=== PATIENT | female | born 1965 | race Caucasian/White ===

== ENCOUNTER 2023-12-19 06:40 | Outpatient (CLI) | payer OTHER, SELFPAY ==
[2023-12-19 08:12] LABS: Alanine Aminotransferase 28 U/L (6-35); Albumin Level 4.8 g/dL (3.5-5.1); Alkaline Phosphatase 72 U/L (38-126); Anion Gap 7 mmol/L (4-12); Aspartate Amino Transferase 36 U/L (14-36); Bilirubin,Total 0.5 mg/dL (0.2-1.3); Blood Urea Nitrogen 9 mg/dL (7-17); Calcium 9.4 mg/dL (8.4-10.2); Carbon Dioxide 32 mmol/L (22-30); Chloride 102 mmol/L (98-107); Cholesterol 195 mg/dL (0-200); Estimated Glomerular Filt Rate > 60; Glucose 83 mg/dL (65-110); HDL Direct 75 mg/dL; Potassium 4.3 mmol/L (3.4-5.0); Sodium 141 mmol/L (137-145); Triglycerides 178 mg/dL (<150)
[2023-12-19 08:20] LABS: Basophils Percent Auto 0.5 % (0.2-1.2); Eosinophils Absolute Auto 0.1 K/mm3 (0-0.3); Hematocrit 42.8 % (37.0-47.0); Immature Granulocyte Absolute 0.01 K/mm3 (0.00-0.031); Immature Granulocyte Percent A 0.3 % (0-0.5); Lymphocytes Absolute Auto 1.71 K/mm3 (0.9-3.2); Lymphocytes Percent Auto 43.2 % (18.3-44.2); Mean Corpuscular HGB Conc 32.7 g/dl (32-36); Mean Corpuscular Hemoglobin 28.7 pg (26-34); Mean Corpuscular Volume 87.9 fl (80-100); Mean Platelet Volume 10.1 fl (7.4-10.4); Monocytes Absolute Auto 0.3 K/mm3 (0.1-0.6); Monocytes Percent Auto 7.1 % (2.6-8.5); Neutrophils Absolute Auto 1.9 K/mm3 (1.3-6.7); Neutrophils Percent Auto 46.9 % (45.5-73.1); Platelet Count Result 218 k/mm3 (150-375); Red Blood Count 4.87 M/mm3 (4.2-5.4); Red Cell Distribution Width 13.1 % (11.5-14.5)
[2023-12-19 08:23] LABS: LDL Cholesterol Direct 74 mg/dL
[2023-12-19 09:17] LABS: Free T4 Free Thyroxine 1.29 ng/mL (0.78-2.19)
[2023-12-20 12:08] LABS: Triiodothyronine T3 Free 3.1 pg/mL (2.3-4.2)
== END 2023-12-19 06:41 | disposition home or self-care (01) ==
PROVIDERS: PCP Internal Medicine; Visit Provider Internal Medicine
DX: E03.9 Hypothyroidism, unspecified (principal); E78.00 Pure hypercholesterolemia, unspecified; Z79.899 Other long term (current) drug therapy
CPT/HCPCS: 36415; 80053; 80061; 84439; 84443; 84481; 85025

== ENCOUNTER 2024-06-29 07:07 | Outpatient (CLI) | payer OTHER, SELFPAY ==
--- OUTSIDE RECORDS SUMMARY | 2024-06-29 07:14 | XMS_ITS | Data Portability ---
Author Organization [facility] Address [address] [place] [address] Care Team Providers Care Government Affairs Specialist Name Role Phone NASEEM RAI Primary Care Provider Assessment Encounter Date Assessment Date Assessment LastModified by Organization Details LastModified Time 07/03/2023 07/03/2023 We will continue current therapy dyslipidemia atorvastatin Synthroid for her hypothyroidism montelukast for her rhinitis. Blood work reviewed increase her atorvastatin to 20 mg daily follow-up with me in 6 months obtain old records discussed coronary calcium scoring she wishes to pursue she says that she had a mammogram earlier this year also colonoscopy in 2021 or 2022 Not available 07/14/2023 12:51:53 01/09/2024 01/09/2024 we will continue current therapy she will follow up in 6 months blood work has been ordered and it was pending [email or web address] Not available 01/28/2024 23:14:47 Plan of Treatment Reminders Order Date Submit Date Provider Last Modified By Organization Details Last Modified Time Details Appointments ANY 15 2024 09:15A Wallace Rai MD Not available Not available Not available Lab None recorded. Referral None recorded. Procedures None recorded. Surgeries None recorded. Imaging CT, coronary calcium score 2023 024 [facility], [address] [facility], [facility] [address], [address], 01/24/2024 14:26:[address] 10 mg tablet 2023 024 [email or web address] [facility], [facility], [place], [address], 07/03/2023 15:28:34 atorvasta tin 20 mg tablet 2023 024 [email or web address] [facility], [address] [facility], [place], [address], 07/03/2023 15:28:34 Synthroid 88 mcg tablet 2023 024 [email or web address] [facility] ([facility]), [facility] [address], [place], [address], 07/03/2023 11:03:36 Patient TargetsNo targets recorded. Patient InstructionsNo instructions recorded. Reason for Referral None Reported. Results Created Date Observation Date Name Description Value Unit Range Abnormal Flag Note LastModifiedBy Organization Detail LastModifiedTime 06/13/19 24 06/13/2023 Thyro tropi n [Unit s/vol ume] in Serum or Plasm a thyroid-stim ulating hormone low thyro id-st imula ting hormo ne Not Available Not Available 05/05/2024 09:55:07 06/13/19 24 06/13/2023 25-hy droxy vitam in D3 [Mass /volu me] in Serum or Plasm a [id number] h Not Available Not Available 05/05/2024 09:55:07 06/13/19 24 06/13/2023 Triio dothy delio e (T3) Free [Mass /volu me] in Serum or Plasm a free T3 free T3 Not Available Not Available 05/05/2024 09:55:07 06/13/19 24 06/13/2023 Thyro xine (T4) free [Mass /volu me] in Serum or Plasm a free T4 free T4 Not Available Not Available 05/05/2024 09:55:07 06/13/19 24 06/13/2023 Lipid 1995 panel - Serum or Plasm a cholesterol high tushar stero l Not Available Not Available 05/05/2024 09:55:07 06/13/19 24 06/13/2023 Lipid 1995 panel - Serum or Plasm a triglyceride s high trigl yceri andra Not Available Not Available 05/05/2024 09:55:07 06/13/19 24 06/13/2023 Lipid 1996 panel - Serum or Plasm a HDL cholesterol HDL tushar stero l Not Available Not Available 05/05/2024 09:55:07 06/13/19 24 06/13/2023 Lipid 1996 panel - Serum or Plasm a cholesterol in LDL [mass/volume ] in serum or plasma LDL tushar stero l, calcu lated Not Available Not Available 05/05/2024 09:55:07 06/13/19 24 06/13/2023 Compr ehens ying metab olic 2000 panel - Serum or Plasm a sodium sodiu m Not Available Not Available 05/05/2024 09:55:07 06/13/19 24 06/13/2023 Compr ehens ying metab olic 2000 panel - Serum or Plasm a potassium potas sium Not Available Not Available 05/05/2024 09:55:07 06/13/19 24 06/13/2023 Compr ehens ying metab olic 2000 panel - Serum or Plasm a chloride chlor debbi Not Available Not Available 05/05/2024 09:55:07 06/13/19 24 06/13/2023 Compr ehens ying metab olic 2000 panel - Serum or Plasm a carbon dioxide high carbo n dioxi de Not Available Not Available 05/05/2024 09:55:07 06/13/19 24 06/13/2023 Compr ehens ying metab olic 2000 panel - Serum or Plasm a anion gap low anion gap Not Available Not Available 05/05/2024 09:55:07 06/13/19 24 06/13/2023 Compr ehens ying metab olic 2000 panel - Serum or Plasm a glucose gluco se Not Available Not Available 05/05/2024 09:55:07 06/13/19 24 06/13/2023 Compr ehens ying metab olic 2000 panel - Serum or Plasm a BUN BUN Not Available Not Availa ble 05/05/2024 09:55:07 06/13/19 24 06/13/2023 Compr ehens ying metab olic 2000 panel - Serum or Plasm a creatinine creat inine Not Available Not Available 05/05/2024 09:55:07 06/13/19 24 06/13/2023 Compr ehens ying metab olic 2000 panel - Serum or Plasm a GFR >60 GFR Not Available Not Availa ble 05/05/2024 09:55:07 06/13/19 24 06/13/2023 Compr ehens ying metab olic 2000 panel - Serum or Plasm a alkaline phosphatase alkal ine phosp hatas e Not Available Not Available 05/05/2024 09:55:07 06/13/19 24 06/13/2023 Compr ehens ying metab olic 2000 panel - Serum or Plasm a alanine aminotransfe rase jennifer ne amino trans feras e Not Available Not Available 05/05/2024 09:55:07 06/13/19 24 06/13/2023 Compr ehens ying metab olic 2000 panel - Serum or Plasm a aspartate aminotransfe rase aspar lim amino trans feras e Not Available Not Available 05/05/2024 09:55:07 06/13/19 24 06/13/2023 Compr ehens ying metab olic 2000 panel - Serum or Plasm a bilirubin, total bilir ubin, total Not Available Not Available 05/05/2024 09:55:07 06/13/19 24 06/13/2023 Compr ehens ying metab olic 2000 panel - Serum or Plasm a calcium calci um Not Available Not Available 05/05/2024 09:55:07 06/13/19 24 06/13/2023 Compr ehens ying metab olic 2000 panel - Serum or Plasm a total protein total prote in Not Available Not Available 05/05/2024 09:55:07 06/13/19 24 06/13/2023 Compr ehens ying metab olic 2000 panel - Serum or Plasm a albumin album in Not Available Not Available 05/05/2024 09:55:07 06/13/19 24 06/13/2023 Compr ehens ying metab olic 2000 panel - Serum or Plasm a globulin globu carol Not Available Not Available 05/05/2024 09:55:07 06/13/19 24 06/13/2023 Compr ehens ying metab olic 2000 panel - Serum or Plasm a A/G ratio A/G ratio Not Available Not Available 05/05/2024 09:55:07 06/13/19 24 06/13/2023 CBC W Auto Diffe renti al panel - Blood white blood cells low white blood cells Not Available Not Available 05/05/2024 09:55:07 03/21/20 24 06/13/2023 CBC W Auto Diffe renti al panel - Blood red blood cells red blood cells Not Available Not Available 05/05/2024 09:55:07 06/13/19 24 06/13/2023 CBC W Auto Diffe renti al panel - Blood hemoglobin hemog lobin Not Available Not Available 05/05/2024 09:55:07 06/13/19 24 06/13/2023 CBC W Auto Diffe renti al panel - Blood hematocrit hemat ocrit Not Available Not Available 05/05/2024 09:55:07 06/13/19 24 06/13/2023 CBC W Auto Diffe renti al panel - Blood mean red cell volume mean red cell volum e Not Available Not Available 05/05/2024 09:55:07 06/13/19 24 06/13/2023 CBC W Auto Diffe renti al panel - Blood mean red cell hemoglobin mean red cell hemog lobin Not Available Not Available 05/05/2024 09:55:07 06/13/19 24 06/13/2023 CBC W Auto Diffe renti al panel - Blood mean RBC HGB concentratio n mean RBC HGB dana ntrat ion Not Available Not Available 05/05/2024 09:55:07 06/13/19 24 06/13/2023 CBC W Auto Diffe renti al panel - Blood red cell distribution width red cell distr ibuti on width Not Available Not Available 05/05/2024 09:55:07 06/13/19 24 06/13/2023 CBC W Auto Diffe renti al panel - Blood platelets plate lets Not Available Not Available 05/05/2024 09:55:07 06/13/19 24 06/13/2023 CBC W Auto Diffe renti al panel - Blood mean platelet volume mean plate let volum e Not Available Not Available 05/05/2024 09:55:07 06/13/19 24 06/13/2023 CBC W Auto Diffe renti al panel - Blood neutrophils neutr ophil s Not Available Not Available 05/05/2024 09:55:07 06/13/19 24 06/13/2023 CBC W Auto Diffe renti al panel - Blood lymphocytes lymph ocyte s Not Available Not Available 05/05/2024 09:55:07 06/13/19 24 06/13/2023 CBC W Auto Diffe renti al panel - Blood monocytes monoc ytes Not Available Not Available 05/05/2024 09:55:07 06/13/19 24 06/13/2023 CBC W Auto Diffe renti al panel - Blood eosinophils eosin ophil s Not Available Not Available 05/05/2024 09:55:07 06/13/19 24 06/13/2023 CBC W Auto Diffe renti al panel - Blood basophils basop hils Not Available Not Available 05/05/2024 09:55:07 06/13/19 24 06/13/2023 CBC W Auto Diffe renti al panel - Blood immature granulocytes immat ure granu locyt es Not Available Not Available 05/05/2024 09:55:07 06/13/19 24 06/13/2023 CBC W Auto Diffe renti al panel - Blood neutrophils, absolute count neutr ophil s, absol [place] count Not Available Not Available 05/05/2024 09:55:07 06/13/19 24 06/13/2023 CBC W Auto Diffe renti al panel - Blood lymphocytes, absolute count lymph ocyte s, absol [place] count Not Available Not Available 05/05/2024 09:55:07 06/13/19 24 06/13/2023 CBC W Auto Diffe renti al panel - Blood monocytes, absolute count low monoc ytes, absol [place] count Not Available Not Available 05/05/2024 09:55:07 06/13/19 24 06/13/2023 CBC W Auto Diffe renti al panel - Blood eosinophils, absolute count eosin ophil s, absol [place] count Not Available Not Available 05/05/2024 09:55:07 06/13/19 24 06/13/2023 CBC W Auto Diffe renti al panel - Blood basophils, absolute count basop hils, absol [place] count Not Available Not Available 05/05/2024 09:55:07 06/13/19 24 06/13/2023 CBC W Auto Diffe renti al panel - Blood immature granulocytes ,absolute immat ure granu locyt es,ab solut e Not Available Not Available 05/05/2024 09:55:07 06/13/19 24 06/13/2023 CBC W Auto Diffe renti al panel - Blood nucleated red blood cells nucle ated red blood cells Not Available Not Available 05/05/2024 09:55:07 06/13/19 24 06/13/2023 CBC W Auto Diffe renti al panel - Blood NRBC# NRBC# Not Available Not Availa ble 05/05/2024 09:55:07 Result Notes None recorded. Problems Name Problem SNOMED Code Status Onset Date Resolution Date Notes Provider Name and Address Organization Details Recorded Time Hypercholestero lemia 40622158 Active 2023 DEL[place], [place] - [facility] 4 11:00:49 Hypothyroidism 16562780 Active 2023 DEL[place], [place] [facility] 4 11:00:55 Long-term drug therapy Active 2024 DEL[place], [place] - [facility] 5 10:40:55 Problem Notes None recorded. Medical Equipment None Reported. Allergies No known drug allergies Medications Name Sig Start Date Stop Date Status Note LastModified by Organization Details LastModified Time cyclobenzap rine 10 mg tablet TAKE 1 TABLET 3 TIMES A DAY BY ORAL ROUTE NEEDED. active Not Available Not Available No t Available atorvastati n 20 mg tablet TAKE 1 TABLET BY MOUTH EVERY DAY 2024 active Not Available Not Available Not Avai lable atorvastati n 10 mg tablet TAKE 1 TABLET BY MOUTH EVERY DAY 01/08 completed Not Available Not Available Not Available azithromyci n 250 mg tablet 07/02 completed Not Available Not Available Not Available hydrocodone 5 mg-acetamin ophen 325 mg tablet TAKE 1 TABLET BY MOUTH EVERY DAY NEEDED 07/02 completed Not Available Not Available Not Available alprazolam 0.5 mg tablet TAKE 1 TABLET BY MOUTH TWICE DAILY NEEDED 07/02 completed Not Available Not Available Not Available Synthroid 88 mcg tablet TAKE 1 TABLET EVERY DAY FOR HYPOTHYRO IDISM 2024 active Not Available Not Available Not Avai lable diclofenac sodium 75 mg tablet,tammie yed release TAKE 1 TABLET BY MOUTH TWICE DAILY 07/02 completed Not Available Not Available Not Available montelukast 10 mg tablet TAKE 1 TABLET BY MOUTH EVERY DAY active Not Available Not Available No t Available methylpredn isolone 4 mg tablets in a dose pack FOLLOW PACKAGE DIRECTION S 07/02 completed Not Available Not Available Not Available Vitals Date Recorded Body weight Heart rate Oxygen saturation Oxygen saturation in Arterial blood by Pulse oximetry Systolic blood pressure Diastolic blood pressure Provider Name and Address Organization Details Last Updated DateTime 4 47165.4 2 g 86 /min 98 % 98 % 120 mm[Hg] 82 mm[Hg] Yulia Montes De Oca MA [facility] 4 09:47:40 Date Recorded Body height Body mass index (BMI) Body weight Heart rate Oxygen saturation Oxygen saturation in Arterial blood by Pulse oximetry Systolic blood pressure Diastolic blood pressure Provider Name and Address Organization Details Last Updated DateTime 167.64 cm 21.9 kg/m2 90331.7 7 g 68 /min 98 % 98 % 110 mm[Hg] 78 mm[Hg] Ashley Shore MA [facility] 09:58:45 Social History Question Answer Notes LastModified by Organizat ion Details LastModified Time Tobacco Smoking Status Never Smoker [facility] 09:45:43 Do You Have An Advance Directive? No Information n ot available 01/09/2024 What Is Your Level Of Alcohol Consumption? Moderate Information not available 07/03/2023 Are You Blind Or Do You Have Difficulty Seeing? No Information n ot available 01/09/2024 What Is Your Level Of Caffeine Consumption? Moderate Information not available 07/03/2023 In The 14 Days Before Symptom Onset, Have You Had Close Contact With A Laboratory-confirm ed COVID-19 While That Case Was Ill? No Information n ot available 01/09/2024 In The 14 Days Before Symptom Onset, Have You Had Close Contact With A Person Who Is Under Investigation For COVID-19 While That Person Was Ill? No Information not available 01/09/2024 Have You Been To An Area Known To Be High Risk For COVID-19? No Information not available 01/09/2024 Are You Deaf Or Do You Have Serious Difficulty Hearing? No Information not available 01/09/2024 What Type Of Diet Are You Following? REGULAR Information n ot available 01/09/2024 Are There Any Guns Present In Your Home? No Information not available 01/09/2024 What Was The Date Of Your Most Recent Tobacco Screening? 01/09/2024 Information not available 01/09/2024 Do You Use Your Seat Belt Or Car Seat Routinely? Yes Information not available 01/09/2024 Do You Have Smoke And Carbon Monoxide Detectors In Your Home? Yes Information not available 01/09/2024 Do You Use Any Illicit Or Recreational Drugs? No Information not available 07/03/2023 Do You Use Sunscreen Routinely? Yes Information not available 01/09/2024 Has Tobacco Cessation Counseling Been Provided? No Information not available 07/03/2023 Do You Or Have You Ever Used Any Other Forms Of Tobacco Or Nicotine? No Information not available 07/03/2023 Sex: Female Functional Status Question Answer Note LastModified by Organization D etails LastModified Time Are you able to care for yourself? Yes Information n ot available 01/09/2024 Mental Status None recorded. Family History Nothing Reported. Medical History Condition Response High Cholesterol Y Thyroid Problems Y Gynecological HistoryNo gynecological history recorded. Obstetrics History GPAL:G 0 P 0 0 0 0 Immunizations Vaccine Type Date Status Note Provider Nam e and Address Organization Details Recorded Time COVID-19, mRNA, LNP-S, PF, 30 mcg/0.3 mL dose 1 completed [place], [place] - [facility] 01/08/2024 17:52:22 COVID-19, mRNA, LNP-S, PF, 30 mcg/0.3 mL dose 1 completed [place] [facility] 01/08/2024 17:52:22 Influenza, split virus, trivalent, preservative 4 completed [place] [facility] 01/08/2024 17:52:22 Influenza, split virus, trivalent, preservative 3 completed [place] [facility] 01/08/2024 17:52:22 Influenza, split virus, quadrivalent, PF 6 completed [place] [facility] 01/08/2024 17:52:22 Influenza, split virus, quadrivalent, PF 5 completed [place] [facility] 01/08/2024 17:52:22 Past Encounters Encounter ID Performer Location Encounter Start Date Encounter Closed Date Diagnosis/Indication Diagnosis SNOMED-CT Code Diagnosis ICD10 Code Diagnosis Note [id number] Naseem Rai MD [facility] (Adult Med) [address] [place] [address] 07/03/2023 09:30:08 07/03/2023 10:49:16 Hypercholesterolemia 90556433 E78.00 Hypothyroidism 03269449 E03.9 Rhinitis 75182438 J00 Screening for cardiovascular system disease 360248624 Z13.6 [id number] Naseem Rai MD [facility] [place] [address] [place] [address] 01/09/2024 09:48:09 01/09/2024 10:54:14 Hypercholesterolemia 94543084 E78.00 Hypothyroidism 34891603 E03.9 Health Concerns Section Related Observation LastModified by Organization Detai ls LastModified Time None Recorded Concern Status LastModified by Organization Details LastModified Time None Recorded Advance Directives Directive N: Payers Encounter Date Sequence Insurance Name Policy Number Policy Trujillo Covered Member ID Trujillo Member ID Guarantor Name 07/03/2023 1 [facility]: (PPO[facility] [id number] Odell Knapp [id number] Samanta Knapp 01/09/2024 1 [employer] [id number] Sherif Knapp [id number] Ivory Knapp Notes Date Note Type Note Provider Name and Address Organization Details Recorded Time 07/03/2023 text/html 58-year-old with hyperlipidemia chronic rhinitis hypothyroidism and has been seeing specialist for what they are considering possibly some chronic Lyme although has not been conclusive comes in she vacillates with fatigue and has for many years but right now she is not in a very fatigued state Naseem Rai MD Attn: [address] [place], [address], [facility] 07/14/2023 12:52:09 01/09/2024 text/html fatigue seems to be up and down atorvastatin she is taking that for her dyslipidemia still has not scheduled her calcium scoring Naseem Rai MD Attn: [address] [facility], [place], [address], [facility] 01/28/2024 23:15:07 OBGyn Episode No OBEpisode recorded.
--- OUTSIDE RECORDS SUMMARY | 2024-06-29 07:14 | XMS_ITS | Continuity of Care Document ---
Author Organization [facility] Address [address] [place] [address] Phone Care Team Providers Care Medical Library Assistant Name Role Phone Sunny Elaine MD Unavailable Unavailable Medications Medication Instructions Dosage Effective Dates (start - stop) Status Comments Ventolin HFA 90 mcg/actuation Aerosol Inhaler inhale 2 puff by inhalation route every 4 - 6 hours as needed - Active cetirizine 10 mg tablet take 1 tablet (10MG) by oral route every day 10 MG - Active Bepreve 1.5 % Eye Drops instill 1 drop by ophthalmic route 2 times every day into both eyes 1.00 drop - Active Please fill with 10 ml bottle fluticasone 50 mcg/actuation Nasal [place], Susp spray 2 spray (100MCG) by intranasal route every day in each nostril 100 MCG - Active Advance Directives Directive Yes / No Effective Date File Name No Information Encounters Encounter Description Practice Location Reason(s) For Visit Diagnoses Date Provider Providers Copied on Encounter [facility], [address], [place], [place], [id number] , [place] tel: [phone] [facility] Allergic rhinitis due to pollenOther Dyspnea/Respiratory AbnormalitiesChroni c rhinitis 2 Chele Correa. [address] [facility] [address], [place], [place], [id number] , [place]. tel: [phone] Referring Provider: Dylan Rai, [address] [facility] [address], [place], [address]. tel:[phone] Family History Family Member Type Diagnosis Age At Onset Mother Problem (finding) Allergies Payers Payer name Insurance type Covered constitution party ID Mikey rodriguez(s) BCBS PR OUT OF STATE [id number] Social History Type Description Quantity Date Captured Comments Alcohol Use Details Unknown Caffeine Use Details Unknown Tobacco Use Status No Information Smoking Status Never smoker Sex Female Vital Signs Date / Time: Height Weight BMI Pulse Rate Blood Pressure Temperature Respiratory Rate Body Surface Area Head Circumference Head Circ. Percentile Wt./Jonathan. Percentile BMI percentile Pulse Ox Inhaled Ox 9:55 AM 66.00 in 126.00 lbs 20.3 3 kg/m eter (2) 67 /min 111/81 mm[Hg] Chief Complaint And Reason For Visit No Information Reason For Referral Reason For Referral No Information History Of Present Illness Encounter Date Complaint History Of Prese nt Illness No Information Functional Status Date Functional Assessmen t No Information Instructions Date Instruction Additional Infor mation No Information Assessments Type Assessment Date No Information Patient Care Teams Name Effective Dates (start - stop) Status Members No Information
--- OUTSIDE RECORDS SUMMARY | 2024-06-29 07:14 | XMS_ITS | CONTINUITY OF CARE DOCUMENT ---
Author Name jessica lopez Address Unknown Organization [facility] Office Address [address] [place] [address] Phone [phone] Care Team Providers Care Soils Analyst Name Role Phone Mika Thomas DO Unavailable [phone] Jesus Rai DO Unavailable [phone] Jesus Rai DO Unavailable [phone] PROBLEMS Condition Status Date Provider Notes Cardiovascular screening active Esther Hurtado INSURANCE PROVIDERS Payer name Policy type / Coverage type Beena red alliance party ID SELF PAY TREATMENT PLAN Date Name CT, Coronary Calcium Score
--- OUTSIDE RECORDS SUMMARY | 2024-06-29 07:15 | XMS_ITS | Clinical Summary ---
Author Organization [facility] Address [address] [place] [address] Care Team Providers Care Director Private Music Therapy Agency Name Role Phone Unavailable Primary Care Provider Unavailabl e Social History Tobacco Use Types Packs/Day Years Used Date Smoking Tobacco: Never Assessed Comments Unknown Sex and Gender Information Value Date Recorded Sex Assigned at Not on file Legal Sex Female 8:34 PM CDT Gender Identity Not on file Sexual Orientation Not on file Plan of Treatment Health Maintenance Due Date Last Done Comments Cervical Cancer Screening Pa p Smear (Age 30 to 64) Every 3 Years 1965 Colorectal Cancer Screening Colonoscopy (10 Years) 1965 Annual Physical 1968 Hepatitis C 07/10/1983 DTaP, Tdap and Td Vaccines ( 1 - Tdap) 1984 Hepatitis B Vaccines (1 of 3 - 19+ 3-dose series) 1984 Cervical Cancer Screening Pa p with HPV Testing (Age 30 to 64) Every 5 Years 07/10/1995 Cervical Cancer Screening with HPV 07/10/1995 Mammogram Screening 2005 Zoster Vaccines (1 of 2) 07/10/2015 COVID-19 Vaccine (2023-2 5 season) 2023 Meningococcal B Vaccine Aged Out No l onger eligible based on patient's age to complete this topic Meningococcal Vaccine Aged Out No tamera maral eligible based on patient's age to complete this topic Pneumococcal Vaccine: Pediat rics (0 to 5 Years) and At-Risk Patients (6 to 64 Years) Aged Out No longer eligible b ased on patient's age to complete this topic RSV Immunizations Under 20 Months Aged Out No longer eligible based on patient's age to complete this topic
--- OUTSIDE RECORDS SUMMARY | 2024-06-29 07:15 | XMS_ITS | Data Portability ---
Author Organization [place] - [facility] [employer], Main Office Address [address] [place] [address] Care Team Providers Care Induction Coordination Engineer Name Role Phone NASEEM RAI Primary Care Provider NASEEM RAI Referring Provider [phone] Assessment Encounter Date Assessment Date Assessment LastModified by Organization Details LastModified Time 06/25/2022 06/25/2022 Continue current therapy and follow up in 6 months blood work prior [email or web address] Not available 06/25/2022 21:54:19 12/24/2022 12/24/2022 Few hydrocodone to have on hand when her headaches get really bad blood work diagnosis discussed follow-up 6 months [email or web address] Not available 12/25/2022 14:31:17 01/11/2023 01/11/2023 HPI: 57-year-old female who came in today for evaluation of her right-sided low back pain radiating into the buttocks. She had a fall in late March of this year where she fell directly onto her buttocks after slipping on some ice. She has severe pain in the right-sided low back. She was seen in the office with x-rays. No fracture was no. She had a very long time before this symptoms in the left-sided low back and sacral area improved. It was several months. She has had continued symptoms in her low back since that. At this point the pain is now in the right-sided low back and radiates deep into the buttocks. Pain worsens when she is up walking and standing. She states that she walks up the street to take the dog for a walk about time she comes back this area is bothering her quite a bit. She is not complaining of any radicular symptoms running down the legs. She does have a history of cramps in her feet that will come on spontaneously at times. She has had no episodes of numbness or tingling in the legs. Patient has tried shut-mus-opboxkh naproxen doing morning 2 at night and has done this consistently for about 6 weeks without any change in her symptoms. She has tried a home exercise program on her own and has done this on a regular basis for over 4 weeks again without any improvement of her symptoms. Overall she feels that the symptoms are getting worse and more frequent. Physical exam: 57-year-old female she is 5 ft 5 129 lb. Her right hip flexes to 135 without discomfort. Externally rotates to 50 internally rotates to 30 without discomfort. She has a negative straight leg raise and negative Stinchfield maneuver on the right leg. She has some mild tenderness to the right sacral area to palpation. There is no tenderness to the buttocks. She has normal sensation of both lower extremities. She has normal motor function all muscle groups right lower extremity. 2+ knee jerk and ankle jerk in the right leg. 2+ dorsalis pedis pulse. Impression: 57-year-old female who has right-sided low back pain that initially started with left-sided low back pain following a significant fall on to her buttocks in late March of this year. Her symptoms have continued to be very bothersome for her. She has tried [id number]-[id number] anti-inflammator ies as well as a home exercise program on her own. I have recommended starting with a Medrol Dosepak and follow that with Voltaren 75 mg b.i.d. will set up outpatient physical therapy to see if this will help. I am also going to try to get an MRI scan of her low back for thorough evaluation. She has had this pain for over 8 months and it seems to be worsening at this point I think it would be beneficial to get an MRI scan of her back to assess any other pathology that could be causing pain such as a herniated disc. We will set these measures up for her. I will reassess her in 1 month, if we are able to get the MRI scan done will see her back after that. 20 minutes was spent in treatment patient more half of this in [id number] conversation [email or web address] Not available 01/11/2023 16:06:43 Plan of Treatment Reminders Order Date Submit Date Provider Last Modified By Organization Details Last Modified Time Details Appointments None recorded. Lab lipid panel, serum 2022 023 [facility] (Lab), [address] [place], [address], 12:46:26 CMP, serum or plasma 2022 023 [facility] (Lab), [address] [place], [address], 12:46:43 CBC w/ auto diff 2022 023 [facility] (Lab), [address] [place], [address], 12:21:06 TSH, serum or plasma 2022 023 [facility] (Lab), [address] [place], [address], 13:03:57 T4, free, serum 2022 023 [facility] (Lab), [address] [place], [address], 12:48:54 T3, free, serum or plasma 2022 023 [facility] (Lab), [address] [place], [address], 12:49:01 Referral None recorded. Procedures None recorded. Surgeries None recorded. Imaging XR, lumbar spine 2022 023 [email or web address] [facility], [address], [place], [address], 16:07:25 Medication Orders Medrol (Kevin) 4 mg tablets in a dose pack [address] [id number], [address], [place], [id number], 3 15:53:58 diclofenac sodium 75 mg tablet,tammie yed release 2022 023 [email or web address] [id number], [address], [place], [id number], 3 15:53:58 Patient TargetsNo targets recorded. Patient InstructionsNo instructions recorded. Reason for Referral None Reported. Results Created Date Observation Date Name Description Value Unit Range Abnormal Flag Note LastModifiedBy Organization Detail LastModifiedTime 12/21/19 22 12/20/2021 SEDIM ENTAT ION RATE erythrocyte sedimentatio n rate 38 mm/HR 0-20 high Not Available [facility] (Lab) [address] [place], [address], 12/20/2021 14:13:48 12/21/19 22 12/20/2021 TSH thyroid-stim ulating hormone 1.140 uIU/m L 0.465- 4.680 Not Available [facility] (Lab) [address] [place], [address], 12/20/2021 13:16:26 12/21/19 22 12/20/2021 T3 FREE free T3 2.7 pg/mL 2.77-5 .27 low Not Available [facility] (Lab) [address] [place], [address], 12/20/2021 12:49:29 12/21/19 22 12/20/2021 T4 FREE free T4 1.73 NG/dL 0.78-2 .19 Not Available [facility] (Lab) [address] [place], [address], 12/20/2021 12:49:28 12/21/19 22 12/20/2021 LIPID PANEL LDL cholesterol, calculated 106 mg/dL 0-130 NIH IGNACIA NSUS REPOR T RECOM MENDA TIONS FOR LDL: ADULT CHILD LOW RISK <130 <110 (OPTI MAL LDL) <100 ----- BORDE RLINE : 130-1 59 ----- HIGH RISK: >160 >130 A TRIGL YCERI DE RESUL T >400 INVAL IDATE S THE CALCU LATIO N FOR LDL FRACT IONAT ION - THE LDL RESUL T WILL NOT BE REPOR EMORY. Not Available [facility] (Lab) [address] [place], [address], 12/20/2021 12:48:51 12/21/19 22 12/20/2021 LIPID PANEL cholesterol 196 mg/dL 140-19 9 NIH IGNACIA NSUS RECOM MENDA TION FOR JOI STERO L: ADULT CHILD LOW RISK: <200 <170 BORDE RLINE : <200- 239 ----- HIGH RISK: >240 >200 Not Available [facility] (Lab) [address] [place], [address], 12/20/2021 12:48:51 12/21/1912/20/2021 LIPID PANEL triglyceride s 177 mg/dL 0-150 high NIH IGNACIA NSUS REPOR T RECOM MENDA TION FOR TRIGL YCERI CLIFF: ADULT CHILD LOW RISK: <150 ----- BODER LINE: 150-1 99 ----- HIGH RISK: >200 ----- Not Available [facility] (Lab) [address] [place], [address], 12/20/2021 12:48:51 12/21/1912/20/2021 LIPID PANEL HDL cholesterol 55 mg/dL 40- Not Available [facility] (Lab) [address] [place], [address], 12/20/2021 12:48:51 12/21/1912/20/2021 COMPR EHENS THERESA METAB OLIC PANEL carbon dioxide 30 mmol/ L 22-30 Not Available [facility] (Lab) [address] [place], [address], 12/20/2021 12:48:49 12/21/19 22 12/20/2021 COMPR EHENS THERESA METAB OLIC PANEL sodium 139 mmol/ L 137-14 5 Not Available [facility] (Lab) [address] [place], [address], 12/20/2021 12:48:49 12/21/19 22 12/20/2021 COMPR EHENS THERESA METAB OLIC PANEL potassium 5.1 mmol/ L 3.5-5. 1 Not Available [facility] (Lab) [address] [place], [address], 12/20/2021 12:48:49 12/21/19 22 12/20/2021 COMPR EHENS THERESA METAB OLIC PANEL chloride 102 mmol/ L 98-107 Not Available [facility] (Lab) [address] [place], [address], 12/20/2021 12:48:49 12/21/19 22 12/20/2021 COMPR EHENS THERESA METAB OLIC PANEL anion gap 12.1 mmol/ L 14-22 low Not Available [facility] (Lab) [address] [place], [address], 12/20/2021 12:48:49 12/21/19 22 12/20/2021 COMPR EHENS THERESA METAB OLIC PANEL glucose 95 mg/dL 70-99 Not Available [facility] (Lab) [address] [place], [address], 12/20/2021 12:48:49 12/21/19 22 12/20/2021 COMPR EHENS THERESA METAB OLIC PANEL BUN 8 mg/dL 8-19 Not Available [facility] (Lab) [address] [place], [address], 12/20/2021 12:48:49 12/21/19 22 12/20/2021 COMPR EHENS THERESA METAB OLIC PANEL creatinine 0.82 mg/dL 0.66-1 .25 Not Available [facility] (Lab) [address] [place], [address], 12/20/2021 12:48:49 12/21/1912/20/2021 COMPR EHENS THERESA METAB OLIC PANEL GFR >60 Refer ence Range : Laurel ge GFR Healt hy Adult : >60 mL/mi n/1.7 3 m2 Chron ic Kidne y Disea se: 15-60 mL/mi n/1.7 3 m2 Kidne y Failu re: <15/m L/min /1.73 m2 www.n iddk. nih.g ov The MDRD study equat ion has not been valid ated in child sangeeta <18 years of age; pregn ant women ; the elder ly >85 years of age; or in some racia l or ethni c subgr oups, such as Hisri nics. Outsi de the valid ated chiqui eters , estim ated GFR is less accur ate, requi ring clini milton judgm ent on a case- by-ca se basis . Clini milton inter preta tion for other races and ages must be made by the clini logan. The MDRD study equat ion has not been valid ated for the evalu ation of serum creat inine relat ed to nutri aubrey l statu s or medic ation usage . For perso ns <18 years of age, a pedia tric GFR calcu lator is avail able on the [facility] websi te: https ://connie palacio.yo rg/pr shyamess ional s/kdo qi/gf r_cal culat or Not Available [facility] (Lab) [address] [place], [address], 12/20/2021 12:48:49 12/21/1912/20/2021 COMPR EHENS THERESA METAB OLIC PANEL alkaline phosphatase 74 U/L 38-126 Not Available [facility] (Lab) [address] [place], [address], 12/20/2021 12:48:49 12/21/1912/20/2021 COMPR EHENS THERESA METAB OLIC PANEL alanine aminotransfe rase 28 U/L 0-35 Not Available [facility] (Lab) [address] [place], [address], 12/20/2021 12:48:49 12/21/19 22 12/20/2021 COMPR EHENS THERESA METAB OLIC PANEL aspartate aminotransfe rase 35 U/L 15-37 Not Available [facility] (Lab) [address] [place], [address], 12/20/2021 12:48:49 12/21/19 22 12/20/2021 COMPR EHENS THERESA METAB OLIC PANEL bilirubin, total 0.30 mg/dL 0.20-1 .30 Not Available [facility] (Lab) [address] [place], [address], 12/20/2021 12:48:49 12/21/19 22 12/20/2021 COMPR EHENS THERESA METAB OLIC PANEL calcium 9.9 mg/dL 8.4-10 .2 Not Available [facility] (Lab) [address] [place], [address], 12/20/2021 12:48:49 12/21/19 22 12/20/2021 COMPR EHENS THERESA METAB OLIC PANEL total protein 7.2 g/dL 6.3-8. 2 Not Available [facility] (Lab) [address] [place], [address], 12/20/2021 12:48:49 12/21/19 22 12/20/2021 COMPR EHENS THERESA METAB OLIC PANEL albumin 4.6 g/dL 3.4-5. 0 Not Available [facility] (Lab) [address] [place], [address], 12/20/2021 12:48:49 12/21/19 22 12/20/2021 COMPR EHENS THERESA METAB OLIC PANEL globulin 2.6 g/dL 2.6-4. 2 Not Available [facility] (Lab) [address] [place], [address], 12/20/2021 12:48:49 12/21/1912/20/2021 COMPR EHENS THERESA METAB OLIC PANEL A/G ratio 1.8 ratio 1.0-2. 0 Not Available [facility] (Lab) [address] [place], [address], 12/20/2021 12:48:49 12/21/19 22 12/20/2021 VITAM IN D 25-HY DROXY [id number] 56.6 NG/mL 30-100 Vitam in D Statu s: Defic ient: <20 ng/mL Insuf ficie nt: 20-29 ng/mL Suffi cient : 30-10 0 ng/mL Not Available [facility] (Lab) [address] [place], [address], 12/20/2021 12:48:17 12/21/1912/20/2021 C REACT THERESA PROTE IN,UL TRA SENS C-reactive protein 0.36 mg/dL 0.0-0. 5 Not Available [facility] (Lab) [address] [place], [address], 12/20/2021 12:37:09 12/21/1912/20/2021 CBC/C OMPLE TE BLD COUNT W/DIF F hematocrit 40.7 % 35.7-4 5.7 Not Available [facility] (Lab) [address] [place], [address], 12/20/2021 12:33:59 12/21/1912/20/2021 CBC/C OMPLE TE BLD COUNT W/DIF F white blood cells 4.1 x10'3 /uL 4.2-10 .8 low Not Available [facility] (Lab) [address] [place], [address], 12/20/2021 12:33:59 12/21/19 22 12/20/2021 CBC/C OMPLE TE BLD COUNT W/DIF F red blood cells 4.60 x10'6 /uL 3.80-5 .20 Not Available [facility] (Lab) [address] [place], [address], 12/20/2021 12:33:59 12/21/19 22 12/20/2021 CBC/C OMPLE TE BLD COUNT W/DIF F hemoglobin 13.3 g/dL 12.0-1 5.6 Not Available [facility] (Lab) [address] [place], [address], 12/20/2021 12:33:59 12/21/19 22 12/20/2021 CBC/C OMPLE TE BLD COUNT W/DIF F mean red cell volume 88.5 fL 82.0-9 9.0 Not Available [facility] (Lab) [address] [place], [address], 12/20/2021 12:33:59 12/21/19 22 12/20/2021 CBC/C OMPLE TE BLD COUNT W/DIF F mean red cell hemoglobin 28.9 pg 27.0-3 3.0 Not Available [facility] (Lab) [address] [place], [address], 12/20/2021 12:33:59 12/21/19 22 12/20/2021 CBC/C OMPLE TE BLD COUNT W/DIF F mean RBC HGB concentratio n 32.7 g/dL 31.0-3 6.0 Not Available [facility] (Lab) [address] [place], [address], 12/20/2021 12:33:59 12/21/19 22 12/20/2021 CBC/C OMPLE TE BLD COUNT W/DIF F red cell distribution width 12.9 % 11.8-1 5.5 Not Available [facility] (Lab) [address] [place], [address], 12/20/2021 12:33:59 12/21/19 22 12/20/2021 CBC/C OMPLE TE BLD COUNT W/DIF F platelets 346 x10'3 /uL 150-40 0 Not Available [facility] (Lab) [address] [place], [address], 12/20/2021 12:33:59 12/21/19 22 12/20/2021 CBC/C OMPLE TE BLD COUNT W/DIF F mean platelet volume 9.5 fL 9.0-12 .4 Not Available [facility] (Lab) [address] [place], [address], 12/20/2021 12:33:59 12/21/19 22 12/20/2021 CBC/C OMPLE TE BLD COUNT W/DIF F neutrophils 46.7 % 39.0-7 2.0 Not Available [facility] (Lab) [address] [place], [address], 12/20/2021 12:33:59 12/21/19 22 12/20/2021 CBC/C OMPLE TE BLD COUNT W/DIF F lymphocytes 38.0 % 16.0-4 7.0 Not Available [facility] (Lab) [address] [place], [address], 12/20/2021 12:33:59 12/21/19 22 12/20/2021 CBC/C OMPLE TE BLD COUNT W/DIF F monocytes 9.0 % 5.0-12 .0 Not Available [facility] (Lab) [address] [place], [address], 12/20/2021 12:33:59 12/21/19 22 12/20/2021 CBC/C OMPLE TE BLD COUNT W/DIF F eosinophils 2.2 % 1.0-7. 0 Not Available [facility] (Lab) [address] [place], [address], 12/20/2021 12:33:59 12/21/19 22 12/20/2021 CBC/C OMPLE TE BLD COUNT W/DIF F basophils 0.7 % 0.0-2. 0 Not Available [facility] (Lab) [address] [place], [address], 12/20/2021 12:33:59 12/21/19 22 12/20/2021 CBC/C OMPLE TE BLD COUNT W/DIF F immature granulocytes 3.4 % 0.00-0 .50 high Not Available [facility] (Lab) [address] [place], [address], 12/20/2021 12:33:59 12/21/19 22 12/20/2021 CBC/C OMPLE TE BLD COUNT W/DIF F neutrophils, absolute count 1.93 x10'3 /uL 1.5-8. 0 Not Available [facility] (Lab) [address] [place], [address], 12/20/2021 12:33:59 12/21/19 22 12/20/2021 CBC/C OMPLE TE BLD COUNT W/DIF F lymphocytes, absolute count 1.57 x10'3 /uL 1.07-3 .43 Not Available [facility] (Lab) [address] [place], [address], 12/20/2021 12:33:59 12/21/19 22 12/20/2021 CBC/C OMPLE TE BLD COUNT W/DIF F monocytes, absolute count 0.37 x10'3 /uL 0.29-0 .99 Not Available [facility] (Lab) [address] [place], [address], 12/20/2021 12:33:59 12/21/19 22 12/20/2021 CBC/C OMPLE TE BLD COUNT W/DIF F nucleated red blood cells 0.0 % -0 Not Available [facility] (Lab) [address] [place], [address], 12/20/2021 12:33:59 12/21/19 22 12/20/2021 CBC/C OMPLE TE BLD COUNT W/DIF F eosinophils, absolute count 0.09 x10'3 /uL 0.02-0 .53 Not Available [facility] (Lab) [address] [place], [address], 12/20/2021 12:33:59 12/21/19 22 12/20/2021 CBC/C OMPLE TE BLD COUNT W/DIF F basophils, absolute count 0.03 x10'3 /uL 0.01-0 .08 Not Available [facility] (Lab) [address] [place], [address], 12/20/2021 12:33:59 12/21/19 22 12/20/2021 CBC/C OMPLE TE BLD COUNT W/DIF F immature granulocytes ,absolute 0.14 x10'3 /uL 0.00-0 .05 high Not Available [facility] (Lab) [address] [place], [address], 12/20/2021 12:33:59 12/21/19 22 12/20/2021 CBC/C OMPLE TE BLD COUNT W/DIF F NRBC# 0.00 x10'3 /uL Not Available [facility] (Lab) [address] [place], [address], 12/20/2021 12:33:59 04/24/19 23 04/24/2022 TSH thyroid-stim ulating hormone 0.992 uIU/m L 0.465- 4.680 Not Available [facility] (Lab) [address] [place], [address], 04/24/2022 11:29:35 04/24/19 23 04/24/2022 T4 FREE free T4 1.56 NG/dL 0.78-2 .19 Not Available [facility] (Lab) [address] [place], [address], 04/24/2022 11:21:56 04/24/1904/24/2022 T3 FREE free T3 3.1 pg/mL 2.77-5 .27 Not Available [facility] (Lab) [address] [place], [address], 04/24/2022 11:21:54 04/24/1904/24/2022 VITAM IN D 25-HY DROXY [id number] 58.3 NG/mL 30-100 Vitam in D Statu s: Defic ient: <20 ng/mL Insuf ficie nt: 20-29 ng/mL Suffi cient : 30-10 0 ng/mL Not Available [facility] (Lab) [address] [place], [address], 04/24/2022 11:21:42 04/24/1904/24/2022 LIPID PANEL cholesterol 223 mg/dL 140-19 9 high NIH IGNACIA NSUS RECOM MENDA TION FOR JOI STERO L: ADULT CHILD LOW RISK: <200 <170 BORDE RLINE : <200- 239 ----- HIGH RISK: >240 >200 Not Available [facility] (Lab) [address] [place], [address], 04/24/2022 11:11:04 04/24/19 23 04/24/2022 LIPID PANEL triglyceride s 159 mg/dL 0-150 high NIH IGNACIA NSUS REPOR T RECOM MENDA TION FOR TRIGL YCERI CLIFF: ADULT CHILD LOW RISK: <150 ----- BODER LINE: 150-1 99 ----- HIGH RISK: >200 ----- Not Available [facility] (Lab) [address] [place], [address], 04/24/2022 11:11:04 04/24/19 23 04/24/2022 LIPID PANEL HDL cholesterol 82 mg/dL 40- Not Available [facility] (Lab) [address] [place], [address], 04/24/2022 11:11:04 04/24/19 23 04/24/2022 LIPID PANEL LDL cholesterol, calculated 109 mg/dL 0-130 NIH IGNACIA NSUS REPOR T RECOM MENDA TIONS FOR LDL: ADULT CHILD LOW RISK <130 <110 (OPTI MAL LDL) <100 ----- BORDE RLINE : 130-1 59 ----- HIGH RISK: >160 >130 A TRIGL YCERI DE RESUL T >400 INVAL IDATE S THE CALCU LATIO N FOR LDL FRACT IONAT ION - THE LDL RESUL T WILL NOT BE REPOR EMORY. Not Available [facility] (Lab) [address] [place], [address], 04/24/2022 11:11:04 04/24/19 23 04/24/2022 COMPR EHENS THERESA METAB OLIC PANEL carbon dioxide 29 mmol/ L 22-30 Not Available [facility] (Lab) [address] [place], [address], 04/24/2022 11:10:55 04/24/19 23 04/24/2022 COMPR EHENS THERESA METAB OLIC PANEL sodium 141 mmol/ L 137-14 5 Not Available [facility] (Lab) [address] [place], [address], 04/24/2022 11:10:55 04/24/19 23 04/24/2022 COMPR EHENS THERESA METAB OLIC PANEL potassium 4.5 mmol/ L 3.5-5. 1 Not Available [facility] (Lab) [address] [place], [address], 04/24/2022 11:10:55 04/24/19 23 04/24/2022 COMPR EHENS THERESA METAB OLIC PANEL chloride 102 mmol/ L 98-107 Not Available [facility] (Lab) [address] [place], [address], 04/24/2022 11:10:55 04/24/19 23 04/24/2022 COMPR EHENS THERESA METAB OLIC PANEL anion gap 14.5 mmol/ L 14-22 Not Available [facility] (Lab) [address] [place], [address], 04/24/2022 11:10:55 04/24/19 23 04/24/2022 COMPR EHENS THERESA METAB OLIC PANEL glucose 92 mg/dL 70-99 Not Available [facility] (Lab) [address] [place], [address], 04/24/2022 11:10:55 04/24/19 23 04/24/2022 COMPR EHENS THERESA METAB OLIC PANEL BUN 8 mg/dL 8-19 Not Available [facility] (Lab) [address] [place], [address], 04/24/2022 11:10:55 04/24/19 23 04/24/2022 COMPR EHENS THERESA METAB OLIC PANEL creatinine 0.75 mg/dL 0.66-1 .25 Not Available [facility] (Lab) [address] [place], [address], 04/24/2022 11:10:55 04/24/19 23 04/24/2022 COMPR EHENS THERESA METAB OLIC PANEL GFR >60 Refer ence Range : Laurel ge GFR Healt hy Adult : >60 mL/mi n/1.7 3 m2 Chron ic Kidne y Disea se: 15-60 mL/mi n/1.7 3 m2 Kidne y Failu re: <15/m L/min /1.73 m2 www.n iddk. nih.g ov The MDRD study equat ion has not been valid ated in child sangeeta <18 years of age; pregn ant women ; the elder ly >85 years of age; or in some racia l or ethni c subgr oups, such as Hispa nics. Outsi de the valid ated chiqui eters , estim ated GFR is less accur ate, requi ring clini milton judgm ent on a case- by-ca se basis . Clini milton inter preta tion for other races and ages must be made by the clini logan. The MDRD study equat ion has not been valid ated for the evalu ation of serum creat inine relat ed to nutri aubrey l statu s or medic ation usage . For perso ns <18 years of age, a pedia tric GFR calcu lator is avail able on the [facility] websi te: https ://ww w.kid hakeem.o rg/pr ofess ional s/kdo qi/gf r_cal culat or Not Available [facility] (Lab) [address] [place], [address], 04/24/2022 11:10:55 04/24/19 23 04/24/2022 COMPR EHENS THERESA METAB OLIC PANEL alkaline phosphatase 71 U/L 38-126 Not Available [facility] (Lab) [address] [place], [address], 04/24/2022 11:10:55 04/24/19 23 04/24/2022 COMPR EHENS THERESA METAB OLIC PANEL alanine aminotransfe rase 23 U/L 0-35 Not Available [facility] (Lab) [address] [place], [address], 04/24/2022 11:10:55 04/24/19 23 04/24/2022 COMPR EHENS THERESA METAB OLIC PANEL aspartate aminotransfe rase 32 U/L 15-37 Not Available [facility] (Lab) [address] [place], [address], 04/24/2022 11:10:55 04/24/19 23 04/24/2022 COMPR EHENS THERESA METAB OLIC PANEL bilirubin, total 0.60 mg/dL 0.20-1 .30 Not Available [facility] (Lab) [address] [place], [address], 04/24/2022 11:10:55 04/24/19 23 04/24/2022 COMPR EHENS THERESA METAB OLIC PANEL calcium 9.6 mg/dL 8.4-10 .2 Not Available [facility] (Lab) [address] [place], [address], 04/24/2022 11:10:55 04/24/19 23 04/24/2022 COMPR EHENS THERESA METAB OLIC PANEL total protein 7.5 g/dL 6.3-8. 2 Not Available [facility] (Lab) [address] [facility] [place], [address], 04/24/2022 11:10:55 04/24/19 23 04/24/2022 COMPR EHENS THERESA METAB OLIC PANEL albumin 4.7 g/dL 3.4-5. 0 Not Available [facility] (Lab) [address] [place], [address], 04/24/2022 11:10:55 04/24/19 23 04/24/2022 COMPR EHENS THERESA METAB OLIC PANEL globulin 2.8 g/dL 2.6-4. 2 Not Available [facility] (Lab) [address] [place], [address], 04/24/2022 11:10:55 04/24/19 23 04/24/2022 COMPR EHENS THERESA METAB OLIC PANEL A/G ratio 1.7 ratio 1.0-2. 0 Not Available [facility] (Lab) [address] [place], [address], 04/24/2022 11:10:55 04/24/19 23 04/24/2022 CPK TOTAL creatine kinase 53 U/L 30-135 Not Available [facility] (Lab) [address] [place], [address], 04/24/2022 11:10:48 12/25/19 23 12/24/2022 CBC/C OMPLE TE BLD COUNT W/DIF F white blood cells 4.3 x10'3 /uL 4.2-10 .8 Not Available [facility] (Lab) [address] [place], [address], 12/24/2022 12:21:06 12/25/19 23 12/24/2022 CBC/C OMPLE TE BLD COUNT W/DIF F red blood cells 4.96 x10'6 /uL 3.80-5 .20 Not Available [facility] (Lab) [address] [place], [address], 12/24/2022 12:21:06 12/25/1912/24/2022 CBC/C OMPLE TE BLD COUNT W/DIF F hemoglobin 14.5 g/dL 12.0-1 5.6 Not Available [facility] (Lab) [address] [place], [address], 12/24/2022 12:21:06 12/25/1912/24/2022 CBC/C OMPLE TE BLD COUNT W/DIF F hematocrit 43.9 % 35.7-4 5.7 Not Available [facility] (Lab) [address] [place], [address], 12/24/2022 12:21:06 12/25/1912/24/2022 CBC/C OMPLE TE BLD COUNT W/DIF F mean red cell volume 88.5 fL 82.0-9 9.0 Not Available [facility] (Lab) [address] [place], [address], 12/24/2022 12:21:06 12/25/1912/24/2022 CBC/C OMPLE TE BLD COUNT W/DIF F mean red cell hemoglobin 29.2 pg 27.0-3 3.0 Not Available [facility] (Lab) [address] [place], [address], 12/24/2022 12:21:06 12/25/1912/24/2022 CBC/C OMPLE TE BLD COUNT W/DIF F mean RBC HGB concentratio n 33.0 g/dL 31.0-3 6.0 Not Available [facility] (Lab) [address] [place], [address], 12/24/2022 12:21:06 12/25/1912/24/2022 CBC/C OMPLE TE BLD COUNT W/DIF F red cell distribution width 13.1 % 11.8-1 5.5 Not Available [facility] (Lab) [address] [place], [address], 12/24/2022 12:21:06 12/25/1912/24/2022 CBC/C OMPLE TE BLD COUNT W/DIF F platelets 224 x10'3 /uL 150-40 0 Not Available [facility] (Lab) [address] [place], [address], 12/24/2022 12:21:06 12/25/1912/24/2022 CBC/C OMPLE TE BLD COUNT W/DIF F mean platelet volume 10.1 fL 9.0-12 .4 Not Available [facility] (Lab) [address] [place], [address], 12/24/2022 12:21:06 12/25/1912/24/2022 CBC/C OMPLE TE BLD COUNT W/DIF F neutrophils 62.0 % 39.0-7 2.0 Not Available [facility] (Lab) [address] [place], [address], 12/24/2022 12:21:06 12/25/1912/24/2022 CBC/C OMPLE TE BLD COUNT W/DIF F lymphocytes 30.2 % 16.0-4 7.0 Not Available [facility] (Lab) [address] [place], [address], 12/24/2022 12:21:06 12/25/1912/24/2022 CBC/C OMPLE TE BLD COUNT W/DIF F monocytes 6.0 % 5.0-12 .0 Not Available [facility] (Lab) [address] [place], [address], 12/24/2022 12:21:06 12/25/1912/24/2022 CBC/C OMPLE TE BLD COUNT W/DIF F eosinophils 1.4 % 1.0-7. 0 Not Available [facility] (Lab) [address] [place], [address], 12/24/2022 12:21:06 12/25/1912/24/2022 CBC/C OMPLE TE BLD COUNT W/DIF F basophils 0.2 % 0.0-2. 0 Not Available [facility] (Lab) [address] [place], [address], 12/24/2022 12:21:06 12/25/1912/24/2022 CBC/C OMPLE TE BLD COUNT W/DIF F immature granulocytes 0.2 % 0.00-0 .50 Not Available [facility] (Lab) [address] [place], [address], 12/24/2022 12:21:06 12/25/1912/24/2022 CBC/C OMPLE TE BLD COUNT W/DIF F neutrophils, absolute count 2.66 x10'3 /uL 1.5-8. 0 Not Available [facility] (Lab) [address] [place], [address], 12/24/2022 12:21:06 12/25/1912/24/2022 CBC/C OMPLE TE BLD COUNT W/DIF F lymphocytes, absolute count 1.30 x10'3 /uL 1.07-3 .43 Not Available [facility] (Lab) [address] [place], [address], 12/24/2022 12:21:06 12/25/19 23 12/24/2022 CBC/C OMPLE TE BLD COUNT W/DIF F monocytes, absolute count 0.26 x10'3 /uL 0.29-0 .99 low Not Available [facility] (Lab) [address] [place], [address], 12/24/2022 12:21:06 12/25/1912/24/2022 CBC/C OMPLE TE BLD COUNT W/DIF F eosinophils, absolute count 0.06 x10'3 /uL 0.02-0 .53 Not Available [facility] (Lab) [address] [place], [address], 12/24/2022 12:21:06 12/25/1912/24/2022 CBC/C OMPLE TE BLD COUNT W/DIF F basophils, absolute count 0.01 x10'3 /uL 0.01-0 .08 Not Available [facility] (Lab) [address] [place], [address], 12/24/2022 12:21:06 12/25/1912/24/2022 CBC/C OMPLE TE BLD COUNT W/DIF F immature granulocytes ,absolute 0.01 x10'3 /uL 0.00-0 .05 Not Available [facility] (Lab) [address] [place], [address], 12/24/2022 12:21:06 12/25/1912/24/2022 CBC/C OMPLE TE BLD COUNT W/DIF F nucleated red blood cells 0.0 % -0 Not Available [facility] (Lab) [address] [place], [address], 12/24/2022 12:21:06 12/25/19 23 12/24/2022 CBC/C OMPLE TE BLD COUNT W/DIF F NRBC# 0.00 x10'3 /uL Not Available [facility] (Lab) [address] [place], [address], 12/24/2022 12:21:06 12/25/1912/24/2022 LIPID PANEL cholesterol 290 mg/dL 140-19 9 high NIH IGNACIA NSUS RECOM MENDA TION FOR JOI STERO L: ADULT CHILD LOW RISK: <200 <170 BORDE RLINE : <200- 239 ----- HIGH RISK: >240 >200 Not Available [facility] (Lab) [address] [place], [address], 12/24/2022 12:46:26 12/25/1912/24/2022 LIPID PANEL triglyceride s 219 mg/dL 0-150 high NIH IGNACIA NSUS REPOR T RECOM MENDA TION FOR TRIGL YCERI CLIFF: ADULT CHILD LOW RISK: <150 ----- BODER LINE: 150-1 99 ----- HIGH RISK: >200 ----- Not Available [facility] (Lab) [address] [place], [address], 12/24/2022 12:46:26 12/25/1912/24/2022 LIPID PANEL HDL cholesterol 92 mg/dL 40- Not Available [facility] (Lab) [address] [place], [address], 12/24/2022 12:46:26 12/25/1912/24/2022 LIPID PANEL LDL cholesterol, calculated 154 mg/dL 0-130 high NIH IGNACIA NSUS REPOR T RECOM MENDA TIONS FOR LDL: ADULT CHILD LOW RISK <130 <110 (OPTI MAL LDL) <100 ----- BORDE RLINE : 130-1 59 ----- HIGH RISK: >160 >130 A TRIGL YCERI DE RESUL T >400 INVAL IDATE S THE CALCU LATIO N FOR LDL FRACT IONAT ION - THE LDL RESUL T WILL NOT BE REPOR EMORY. Not Available [facility] (Lab) [address] [place], [address], 12/24/2022 12:46:26 12/25/1912/24/2022 COMPR EHENS THERESA METAB OLIC PANEL sodium 140 mmol/ L 137-14 5 Not Available [facility] (Lab) [address] [place], [address], 12/24/2022 12:46:43 12/25/1912/24/2022 COMPR EHENS THERESA METAB OLIC PANEL potassium 4.1 mmol/ L 3.5-5. 1 Not Available [facility] (Lab) [address] [place], [address], 12/24/2022 12:46:43 12/25/1912/24/2022 COMPR EHENS THERESA METAB OLIC PANEL chloride 102 mmol/ L 98-107 Not Available [facility] (Lab) [address] [place], [address], 12/24/2022 12:46:43 12/25/1912/24/2022 COMPR EHENS THERESA METAB OLIC PANEL carbon dioxide 29 mmol/ L 22-30 Not Available [facility] (Lab) [address] [place], [address], 12/24/2022 12:46:43 12/25/1912/24/2022 COMPR EHENS THERESA METAB OLIC PANEL anion gap 13.1 mmol/ L 14-22 low Not Available [facility] (Lab) [address] [place], [address], 12/24/2022 12:46:43 12/25/1912/24/2022 COMPR EHENS THERESA METAB OLIC PANEL glucose 94 mg/dL 70-99 Not Available [facility] (Lab) [address] [place], [address], 12/24/2022 12:46:43 12/25/1912/24/2022 COMPR EHENS THERESA METAB OLIC PANEL BUN 10 mg/dL 8-19 Not Available [facility] (Lab) [address] [place], [address], 12/24/2022 12:46:43 12/25/1912/24/2022 COMPR EHENS THERESA METAB OLIC PANEL creatinine 0.70 mg/dL 0.66-1 .25 Not Available [facility] (Lab) [address] [place], [address], 12/24/2022 12:46:43 12/25/1912/24/2022 COMPR EHENS THERESA METAB OLIC PANEL GFR >60 Refer ence Range : Laurel ge GFR Healt hy Adult : >60 mL/mi n/1.7 3 m2 Chron ic Kidne y Disea se: 15-60 mL/mi n/1.7 3 m2 Kidne y Failu re: <15/m L/min /1.73 m2 www.n iddk. nih.g ov The MDRD study equat ion has not been valid ated in child sangeeta <18 years of age; pregn ant women ; the elder ly >85 years of age; or in some racia l or ethni c subgr oups, such as Hisri nics. Outsi de the valid ated chiqui eters , estim ated GFR is less accur ate, requi ring clini milton judgm ent on a case- by-ca se basis . Clini milton inter preta tion for other races and ages must be made by the clini logan. The MDRD study equat ion has not been valid ated for the evalu ation of serum creat inine relat ed to nutri aubrey l statu s or medic ation usage . For perso ns <18 years of age, a pedia tric GFR calcu lator is avail able on the NKF websi te: https :[email or web address] palacio.yo davila/pr charanjit colonal s/kdo qi/gf r_cal culat or Not Available [facility] (Lab) [address] [place], [address], 12/24/2022 12:46:43 12/25/1912/24/2022 COMPR EHENS THERESA METAB OLIC PANEL alkaline phosphatase 79 U/L 38-126 Not Available [facility] (Lab) [address] [place], [address], 12/24/2022 12:46:43 12/25/1912/24/2022 COMPR EHENS THERESA METAB OLIC PANEL alanine aminotransfe rase 24 U/L 0-35 Not Available [facility] (Lab) [address] [facility] [place], [address], 12/24/2022 12:46:43 12/25/1912/24/2022 COMPR EHENS THERESA METAB OLIC PANEL aspartate aminotransfe rase 30 U/L 15-37 Not Available [facility] (Lab) [address] [place], [address], 12/24/2022 12:46:43 12/25/1912/24/2022 COMPR EHENS THERESA METAB OLIC PANEL bilirubin, total 0.50 mg/dL 0.20-1 .30 Not Available [facility] (Lab) [address] [place], [address], 12/24/2022 12:46:43 12/25/1912/24/2022 COMPR EHENS THREESA METAB OLIC PANEL calcium 10.3 mg/dL 8.4-10 .2 high Not Available [facility] (Lab) [address] [place], [address], 12/24/2022 12:46:43 12/25/1912/24/2022 COMPR EHENS THERESA METAB OLIC PANEL total protein 8.2 g/dL 6.3-8. 2 Not Available [facility] (Lab) [address] [place], [address], 12/24/2022 12:46:43 12/25/19 23 12/24/2022 COMPR EHENS THERESA METAB OLIC PANEL albumin 5.2 g/dL 3.4-5. 0 high Not Available [facility] (Lab) [address] [place], [address], 12/24/2022 12:46:43 12/25/1912/24/2022 COMPR EHENS THERESA METAB OLIC PANEL globulin 3.0 g/dL 2.6-4. 2 Not Available [facility] (Lab) [address] [place], [address], 12/24/2022 12:46:43 12/25/1912/24/2022 COMPR EHENS THERESA METAB OLIC PANEL A/G ratio 1.7 ratio 1.0-2. 0 Not Available [facility] (Lab) [address] [place], [address], 12/24/2022 12:46:43 12/25/1912/24/2022 T4 FREE free T4 1.29 NG/dL 0.78-2 .19 Not Available [facility] (Lab) [address] [place], [address], 12/24/2022 12:48:54 12/25/1912/24/2022 T3 FREE free T3 3.5 pg/mL 2.77-5 .27 Not Available [facility] (Lab) [address] [place], [address], 12/24/2022 13:33:04 12/25/1912/24/2022 TSH thyroid-stim ulating hormone 0.517 uIU/m L 0.465- 4.680 Not Available [facility] (Lab) [address] [place], [address], 12/24/2022 13:03:57 06/13/19 24 06/13/2023 CBC/C OMPLE TE BLD COUNT W/DIF F white blood cells 3.9 x10'3 /uL 4.2-10 .8 low Not Available [facility] (Lab) [address] [place], [address], 06/13/2023 11:02:30 06/13/19 24 06/13/2023 CBC/C OMPLE TE BLD COUNT W/DIF F red blood cells 4.74 x10'6 /uL 3.80-5 .20 Not Available [facility] (Lab) [address] [place], [address], 06/13/2023 11:02:30 06/13/19 24 06/13/2023 CBC/C OMPLE TE BLD COUNT W/DIF F hemoglobin 14.0 g/dL 12.0-1 5.6 Not Available [facility] (Lab) [address] [place], [address], 06/13/2023 11:02:30 06/13/19 24 06/13/2023 CBC/C OMPLE TE BLD COUNT W/DIF F hematocrit 41.7 % 35.7-4 5.7 Not Available [facility] (Lab) [address] [place], [address], 06/13/2023 11:02:30 06/13/19 24 06/13/2023 CBC/C OMPLE TE BLD COUNT W/DIF F mean red cell volume 88.0 fL 82.0-9 9.0 Not Available [facility] (Lab) [address] [place], [address], 06/13/2023 11:02:30 06/13/19 24 06/13/2023 CBC/C OMPLE TE BLD COUNT W/DIF F mean red cell hemoglobin 29.5 pg 27.0-3 3.0 Not Available [facility] (Lab) [address] [place], [address], 06/13/2023 11:02:30 06/13/19 24 06/13/2023 CBC/C OMPLE TE BLD COUNT W/DIF F mean RBC HGB concentratio n 33.6 g/dL 31.0-3 6.0 Not Available [facility] (Lab) [address] [place], [address], 06/13/2023 11:02:30 06/13/19 24 06/13/2023 CBC/C OMPLE TE BLD COUNT W/DIF F red cell distribution width 12.7 % 11.8-1 5.5 Not Available [facility] (Lab) [address] [place], [address], 06/13/2023 11:02:30 06/13/19 24 06/13/2023 CBC/C OMPLE TE BLD COUNT W/DIF F platelets 229 x10'3 /uL 150-40 0 Not Available [facility] (Lab) [address] [place], [address], 06/13/2023 11:02:30 06/13/19 24 06/13/2023 CBC/C OMPLE TE BLD COUNT W/DIF F mean platelet volume 10.2 fL 9.0-12 .4 Not Available [facility] (Lab) [address] [place], [address], 06/13/2023 11:02:30 06/13/19 24 06/13/2023 CBC/C OMPLE TE BLD COUNT W/DIF F neutrophils 51.2 % 39.0-7 2.0 Not Available [facility] (Lab) [address] [place], [address], 06/13/2023 11:02:30 06/13/19 24 06/13/2023 CBC/C OMPLE TE BLD COUNT W/DIF F lymphocytes 40.1 % 16.0-4 7.0 Not Available [facility] (Lab) [address] [place], [address], 06/13/2023 11:02:30 06/13/19 24 06/13/2023 CBC/C OMPLE TE BLD COUNT W/DIF F monocytes 6.9 % 5.0-12 .0 Not Available [facility] (Lab) [address] [place], [address], 06/13/2023 11:02:30 06/13/19 24 06/13/2023 CBC/C OMPLE TE BLD COUNT W/DIF F eosinophils 1.0 % 1.0-7. 0 Not Available [facility] (Lab) [address] [place], [address], 06/13/2023 11:02:30 06/13/19 24 06/13/2023 CBC/C OMPLE TE BLD COUNT W/DIF F basophils 0.5 % 0.0-2. 0 Not Available [facility] (Lab) [address] [place], [address], 06/13/2023 11:02:30 06/13/19 24 06/13/2023 CBC/C OMPLE TE BLD COUNT W/DIF F immature granulocytes 0.3 % 0.00-0 .50 Not Available [facility] (Lab) [address] [place], [address], 06/13/2023 11:02:30 06/13/19 24 06/13/2023 CBC/C OMPLE TE BLD COUNT W/DIF F neutrophils, absolute count 1.99 x10'3 /uL 1.5-8. 0 Not Available [facility] (Lab) [address] [place], [address], 06/13/2023 11:02:30 06/13/19 24 06/13/2023 CBC/C OMPLE TE BLD COUNT W/DIF F lymphocytes, absolute count 1.56 x10'3 /uL 1.07-3 .43 Not Available [facility] (Lab) [address] [place], [address], 06/13/2023 11:02:30 06/13/19 24 06/13/2023 CBC/C OMPLE TE BLD COUNT W/DIF F monocytes, absolute count 0.27 x10'3 /uL 0.29-0 .99 low Not Available [facility] (Lab) [address] [place], [address], 06/13/2023 11:02:30 06/13/19 24 06/13/2023 CBC/C OMPLE TE BLD COUNT W/DIF F eosinophils, absolute count 0.04 x10'3 /uL 0.02-0 .53 Not Available [facility] (Lab) [address] [place], [address], 06/13/2023 11:02:30 06/13/19 24 06/13/2023 CBC/C OMPLE TE BLD COUNT W/DIF F basophils, absolute count 0.02 x10'3 /uL 0.01-0 .08 Not Available [facility] (Lab) [address] [place], [address], 06/13/2023 11:02:30 06/13/19 24 06/13/2023 CBC/C OMPLE TE BLD COUNT W/DIF F immature granulocytes ,absolute 0.01 x10'3 /uL 0.00-0 .05 Not Available [facility] (Lab) [address] [place], [address], 06/13/2023 11:02:30 06/13/19 24 06/13/2023 CBC/C OMPLE TE BLD COUNT W/DIF F nucleated red blood cells 0.0 % -0 Not Available [facility] (Lab) [address] [place], [address], 06/13/2023 11:02:30 06/13/19 24 06/13/2023 CBC/C OMPLE TE BLD COUNT W/DIF F NRBC# 0.00 x10'3 /uL Not Available [facility] (Lab) [address] [place], [address], 06/13/2023 11:02:30 03/21/20 24 06/13/2023 COMPR EHENS THERESA METAB OLIC PANEL sodium 141 mmol/ L 137-14 5 Not Available [facility] (Lab) [address] [place], [address], 06/13/2023 11:30:23 06/13/19 24 06/13/2023 COMPR EHENS THERESA METAB OLIC PANEL potassium 4.7 mmol/ L 3.5-5. 1 Not Available [facility] (Lab) [address] [place], [address], 06/13/2023 11:30:23 06/13/19 24 06/13/2023 COMPR EHENS THERESA METAB OLIC PANEL chloride 105 mmol/ L 98-107 Not Available [facility] (Lab) [address] [place], [address], 06/13/2023 11:30:23 06/13/19 24 06/13/2023 COMPR EHENS THERESA METAB OLIC PANEL carbon dioxide 32 mmol/ L 22-30 high Not Available [facility] (Lab) [address] [place], [address], 06/13/2023 11:30:23 06/13/19 24 06/13/2023 COMPR EHENS THERESA METAB OLIC PANEL anion gap 8.7 mmol/ L 14-22 low Not Available [facility] (Lab) [address] [place], [address], 06/13/2023 11:30:23 06/13/19 24 06/13/2023 COMPR EHENS THERESA METAB OLIC PANEL glucose 96 mg/dL 70-99 Not Available [facility] (Lab) [address] [place], [address], 06/13/2023 11:30:23 06/13/19 24 06/13/2023 COMPR EHENS THERESA METAB OLIC PANEL BUN 8 mg/dL 8-19 Not Available [facility] (Lab) [address] [place], [address], 06/13/2023 11:30:23 06/13/19 24 06/13/2023 COMPR EHENS THERESA METAB OLIC PANEL creatinine 0.83 mg/dL 0.66-1 .25 Not Available [facility] (Lab) [address] [place], [address], 06/13/2023 11:30:23 06/13/19 24 06/13/2023 COMPR EHENS THERESA METAB OLIC PANEL GFR >60 Refer ence Range : Laurel ge GFR Healt hy Adult : >60 mL/mi n/1.7 3 m2 Chron ic Kidne y Disea se: 15-60 mL/mi n/1.7 3 m2 Kidne y Failu re: <15/m L/min /1.73 m2 www.n iddk. nih.g ov The MDRD study equat ion has not been valid ated in child sangeeta <18 years of age; pregn ant women ; the elder ly >85 years of age; or in some racia l or ethni c subgr oups, such as Hisri nics. Outsi de the valid ated chiqui eters , estim ated GFR is less accur ate, requi ring clini milton judgm ent on a case- by-ca se basis . Clini milton inter preta tion for other races and ages must be made by the clini logan. The MDRD study equat ion has not been valid ated for the evalu ation of serum creat inine relat ed to nutri aubrey l statu s or medic ation usage . For perso ns <18 years of age, a pedia tric GFR calcu lator is avail able on the NKF websi te: https :[email or web address] palacio.yo davila/pr ofess ional s/kdo qi/gf r_cal culat or Not Available [facility] (Lab) [address] [place], [address], 06/13/2023 11:30:23 06/13/19 24 06/13/2023 COMPR EHENS THERESA METAB OLIC PANEL alkaline phosphatase 72 U/L 38-126 Not Available [facility] (Lab) [address] [place], [address], 06/13/2023 11:30:23 06/13/19 24 06/13/2023 COMPR EHENS THERESA METAB OLIC PANEL alanine aminotransfe rase 19 U/L 0-35 Not Available [facility] (Lab) [address] [place], [address], 06/13/2023 11:30:23 06/13/19 24 06/13/2023 COMPR EHENS THERESA METAB OLIC PANEL aspartate aminotransfe rase 31 U/L 15-37 Not Available [facility] (Lab) [address] [place], [address], 06/13/2023 11:30:23 06/13/19 24 06/13/2023 COMPR EHENS THERESA METAB OLIC PANEL bilirubin, total 0.60 mg/dL 0.20-1 .30 Not Available [facility] (Lab) [address] [place], [address], 06/13/2023 11:30:23 06/13/19 24 06/13/2023 COMPR EHENS THERESA METAB OLIC PANEL calcium 10.0 mg/dL 8.4-10 .2 Not Available [facility] (Lab) [address] [place], [address], 06/13/2023 11:30:23 06/13/19 24 06/13/2023 COMPR EHENS THERESA METAB OLIC PANEL total protein 7.6 g/dL 6.3-8. 2 Not Available [facility] (Lab) [address] [place], [address], 06/13/2023 11:30:23 06/13/19 24 06/13/2023 COMPR EHENS THERESA METAB OLIC PANEL albumin 5.0 g/dL 3.4-5. 0 Not Available [facility] (Lab) [address] [place], [address], 06/13/2023 11:30:23 06/13/19 24 06/13/2023 COMPR EHENS THERESA METAB OLIC PANEL globulin 2.6 g/dL 2.6-4. 2 Not Available [facility] (Lab) [address] [place], [address], 06/13/2023 11:30:23 06/13/19 24 06/13/2023 COMPR EHENS THERESA METAB OLIC PANEL A/G ratio 1.9 ratio 1.0-2. 0 Not Available [facility] (Lab) [address] [place], [address], 06/13/2023 11:30:23 06/13/19 24 06/13/2023 LIPID PANEL cholesterol 240 mg/dL 140-19 9 high NIH IGNACIA NSUS RECOM MENDA TION FOR JOI STERO L: ADULT CHILD LOW RISK: <200 <170 BORDE RLINE : <200- 239 ----- HIGH RISK: >240 >200 Not Available [facility] (Lab) [address] [place], [address], 06/13/2023 11:30:28 06/13/19 24 06/13/2023 LIPID PANEL triglyceride s 204 mg/dL 0-150 high NIH IGNACIA NSUS REPOR T RECOM MENDA TION FOR TRIGL YCERI CLIFF: ADULT CHILD LOW RISK: <150 ----- BODER LINE: 150-1 99 ----- HIGH RISK: >200 ----- Not Available [facility] (Lab) [address] [place], [address], 06/13/2023 11:30:28 06/13/19 24 06/13/2023 LIPID PANEL HDL cholesterol 88 mg/dL 40- Not Available [facility] (Lab) [address] [place], [address], 06/13/2023 11:30:28 06/13/19 24 06/13/2023 LIPID PANEL LDL cholesterol, calculated 111 mg/dL 0-130 NIH IGNACIA NSUS REPOR T RECOM MENDA TIONS FOR LDL: ADULT CHILD LOW RISK <130 <110 (OPTI MAL LDL) <100 ----- BORDE RLINE : 130-1 59 ----- HIGH RISK: >160 >130 A TRIGL YCERI DE RESUL T >400 INVAL IDATE S THE CALCU LATIO N FOR LDL FRACT IONAT ION - THE LDL RESUL T WILL NOT BE REPOR EMORY. Not Available [facility] (Lab) [address] [place], [address], 06/13/2023 11:30:28 06/13/19 24 06/13/2023 T4 FREE free T4 1.37 NG/dL 0.78-2 .19 Not Available [facility] (Lab) [address] [place], [address], 06/13/2023 11:32:18 06/13/19 24 06/13/2023 T3 FREE free T3 3.2 pg/mL 2.77-5 .27 Not Available [facility] (Lab) [address] [place], [address], 06/13/2023 11:32:22 06/13/19 24 06/13/2023 VITAM IN D 25-HY DROXY [id number] 57.4 NG/mL 30-100 Vitam in D Statu s: Defic ient: <20 ng/mL Insuf ficie nt: 20-29 ng/mL Suffi cient : 30-10 0 ng/mL Not Available [facility] (Lab) [address] [place], [address], 06/13/2023 11:44:55 06/13/19 24 06/13/2023 TSH thyroid-stim ulating hormone 0.404 uIU/m L 0.465- 4.680 low Not Available [facility] (Lab) [address] [place], [address], 06/13/2023 11:46:41 04/25/19 23 04/26/2022 XR, hip, unila teral , 2 or 3 view No observ ation record ed. [id number] [place] [address], [place], [address], 05/23/2022 01:31:46 01/12/20 XR, lumba r spine No observ ation record ed. [email or web address] [place] [address], [place], [address], 01/11/2023 16:01:34 01/29/2001/28/2023 MRI, lumba r spine , w/o contr ast [facility] [address] [address] Patien t Name: FABI FROST Access ion #: [id number] Sex: F : 1965 2 Dictat ed By: Quinten ocasio Attend ing Physic dereck: YAMILEX GOLDSMITH [facility] Physic dereck: YAMILEX GOLDSMITH Exam Date: 2022 08:41 AM Exam Name: MRI L SPINE WO Admitt ing Diagno sis(es ): CLINIC AL INFORM ATION: Low back pain. TECHNI MILTON INFORM ATION: Multis equenc e multip lanar MRI images of the lumbar spine were obtain ed withou t contra st. COMPAR SIVA: None. INTERP RETATI ON: Verteb ral body alignm ent is within normal limits . Verteb ral body height s are mainta ined. 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 No focal suspic ious marrow signal abnorm ality. Visual ized spinal cord and cauda equina are within normal limits . The conus medull gus is approp riate in signal at the L1 level. Parasp inal soft tissue s are unrema rkable . L1-L2: Disc desicc ation. No signif icant spinal canal or neural forami nal stenos is. L2-L3: Disc desicc ation. No signif icant spinal canal or neural forami nal stenos is. L3-L4: Disc desicc ation with mild disc space narrow ing. Mild disc bulge mildly flatte zee the ventra l aspect of the thecal sac. No signif icant spinal canal stenos is. Facet hypert rophy and mild encroa chment of the left neural forame n by a disc protru elisabeth contri bute to mild to modera te left neural forami nal stenos is. Mild right neural forami nal stenos is second lesia to facet hypert rophy. L4-L5: Disc desicc ation. Diffus e disc bulge mildly flatte zee the ventra l aspect of the thecal sac. No signif icant spinal canal stenos is. Small annula r fissur e. Facet hypert rophy with modera te bilate ral neural forami nal stenos es. L5-S1: Disc desicc ation. No signif icant spinal canal stenos is. Facet hypert rophy with mild to modera te bilate ral neural forami nal stenos es. Page 1 [facility] [address] [place] [address] [phone] Patien t Name: FABI FROST [facility] ion #: [id number] Sex: F : 1965 2 Dictat ed By: Quinten ocasio Attend [facility] Physic dereck: ANNETTA KAMINSKI [facility] Physic dereck: YAMILEX GOLDSMITH Exam Date: 2022 08:41 AM Exam Name: MRI L SPINE WO Admitt ing Diagno sis(es ): IMPRES ELISABETH: 1. Degene rative disc diseas e and facet diseas e in the lumbar spine with associ ated neural forami nal stenos es as descri bed above. No signif icant spinal canal stenos is. 2. Small annula r fissur e at L4-L5. Electr onical ly Signed by: Quinten ocasio at 2022 10:49: 58 AM Page 2 [facility] ([facility]) [address] [place], [address], 01/29/2023 12:41:57 Result Notes None recorded. Problems Name Problem SNOMED Code Status Onset Date Resolution Date Notes Provider Name and Address Organization Details Recorded Time Hypercholeste rolemia 94785224 Active Not Available [facility] 4 10:41:39 Liver enzymes outside reference range 307036683 Active Not Available [facility] 4 10:41:40 Menopausal flushing 772886884 Active Not Available [facility] 4 10:41:40 Lyme disease 18465594 Active 2019 Not Available [facility] 4 10:41:40 Headache 74478403 Active Not Available [facility] 4 10:41:40 Pure hypercholeste rolemia 383366586 Active Not Available [facility] 4 10:41:40 Numbness of face 452549525 Active Not Available [facility] 4 10:41:40 Multiple joint pain 08771554 Active Not Available [facility] 4 10:41:40 Neuropathy 216935594 Active Not Available [facility] 4 10:41:40 Hypothyroidis m 93788542 Active Not Available [facility] 4 10:41:40 History of polyp of colon 686744212 Active Not Available [facility] 4 10:41:40 Numbness 85735794 Active Not Available [facility] 4 10:41:40 Seasonal allergy 269022565 Active Not Available [facility] 4 10:41:40 Foot pain 86127410 Active 2021 Not Available [facility] 4 10:41:40 Anxiety 46575353 Active Not Available [facility] 4 10:41:40 Hand pain 65534822 Active Not Available [facility] 4 10:41:40 Increased liver function 66463593 Active Not Available [facility] 4 10:41:40 Fatigue 19128698 Active 2022 Not Available [facility] 4 10:41:40 Chronic rhinitis 25348151 Active Not Available [facility] 4 10:41:40 Low back pain 938616740 Active 2022 Not Available [facility] 4 10:41:40 Low back strain 764970038 Active 2022 Not Available [facility] 4 10:41:40 Acute sinusitis 77382812 Active 2022 Not Available [facility] 4 10:41:40 Problem Notes None recorded. Procedures Surgical History Date Name Laterality Status Provider Name and Address Organization Details Recorded Time 03/22/20 Most Recent Mammogram completed Not Available [facility] 05/23/2022 00:59:45 03/15/20 21 Date of Last Pap Smear completed Not Available [facility] 05/23/2022 00:59:44 10/18/19 21 Colonoscopy completed Not Available [facility] 05/24/19 00:59:49 05/06/19 21 Cataract Surgery completed Not Available [facility] 03/2022 00:59:49 04/01/19 21 Cataract Surgery completed Not Available [facility] 03/2022 00:59:49 07/03/19 19 Most Recent Bone Density completed Not Available [facility] 05/23/2022 00:59:45 08/11/19 16 Date of Last Colonoscopy completed Not Available [facility] 05/23/2022 00:59:45 10/25/19 10 [employer] Surgery completed Not Available [facility] 05/24/19 00:59:49 10/25/19 10 [employer] Surgery completed Not Available [facility] 05/24/19 00:59:49 05/22/19 07 endometrial biopsy completed Not Available [facility] 05/23/2022 00:59:49 [employer] Surgery completed Not Available [facility] 05/23/2022 00:59:49 Polyp Removal completed Not Available [facility] 05/23/2022 00:59:49 Colonoscopy completed Not Available [facility] 05/23/2022 00:59:49 Tonsillectomy completed Not Available [facility] 05/23/2022 00:59:49 Imaging Results Imaging Date Name Status LastModified by [facility] Details LastModified Time 04/26/2022 XR, hip, unilateral, 2 or 3 view completed [id number] [id number] [place] [address], [place], [address], 05/23/2022 01:31:46 01/11/2023 XR, lumbar spine completed [email or web address] [facility] [place] [address], [place], [address], 01/11/2023 16:01:34 01/28/2023 MRI, lumbar spine, w/o contrast completed [email or web address] [facility] (Imaging) [address] [place], [address], 01/29/2023 12:41:57 Procedure Notes None recorded. Medical Equipment None Reported. Allergies Allergen ID Allergen Name Allergen Category Reaction Reaction Severity Criticality Documentation Date Start Date Code Code System Note Provider Name and Address Organization Details Recorded Time 2590 nickel environme nt rash Not available Not available 05/23/2022 49956 29 RxNorm Not Available [facility] 01:31:04 Medications Name Sig Start Date Stop Date Status Note LastModified by Organization Details LastModified Time Prescriptio n - Prior Authorizati on Request active Not Available Not Available N ot Available cyclobenzap rine 10 mg tablet TAKE 1 TABLET BY MOUTH THREE TIMES DAILY NEEDED active Not Available Not Available No t Available fluconazole 100 mg tablet 03/15 completed Not Available Not Available Not Available ivermectin 3 mg tablet TAKE 4 TABLETS BY MOUTH AT 1 TIME ONCE A WEEK FOR NEUROBORR ELIOSIS 12/25 completed Not Available Not Available Not Available venlafaxine ER 37.5 mg capsule,ext ended release 24 hr 07/16 completed Not Available Not Available Not Available prednisone 10 mg tablet 01/14 completed Not Available Not Available Not Available venlafaxine ER 75 mg capsule,ext ended release 24 hr TAKE ONE CAPSULE BY MOUTH TWICE A DAY 03/07 completed Not Available Not Available Not Available doxycycline hyclate 100 mg capsule 09/19 completed Not Available Not Available Not Available cefuroxime axetil 250 mg tablet 09/20 completed Not Available Not Available Not Available cetirizine 10 mg tablet Take 1 tablet every day by oral route. 02/24 completed Not Available Not Available Not Available atorvastati n 10 mg tablet TAKE 1 TABLET BY MOUTH EVERY DAY active Not Available Not Available No t Available cefpodoxime 200 mg tablet TAKE 1 TABLET BY MOUTH TWICE A DAY 09/19 completed Not Available Not Available Not Available azithromyci n 250 mg tablet TAKE 2 TABLETS (500 MG) BY ORAL ROUTE ONCE DAILY FOR 1 DAY THEN 1 TABLET (250 MG) BY ORAL ROUTE ONCE DAILY FOR 4 DAYS 12/24 completed Not Available Not Available Not Available ofloxacin 0.3 % eye drops 09/19 completed Not Available Not Available Not Available benzonatate 200 mg capsule 07/17 completed Not Available Not Available Not Available hydrocodone 5 mg-acetamin ophen 325 mg tablet TAKE 1 TABLET BY MOUTH EVERY DAY NEEDED active Not Available Not Available No t Available minocycline 100 mg capsule TAKE 1 CAPSULE BY MOUTH TWICE A DAY (AVOID SUNBURN & TAKE WITH RIFAMPIN) active Not Available Not Available No t Available meloxicam 15 mg tablet TAKE 1 TABLET BY MOUTH EVERY DAY 12/24 completed Not Available Not Available Not Available Synthroid 125 mcg tablet Take 1 tablet every day by oral route in the morning for 30 days. 05/31 completed Not Available Not Available Not Available prednisone 20 mg tablet 09/20 completed Not Available Not Available Not Available Synthroid 100 mcg tablet Take 1 tablet every day by oral route in the morning for 30 days. 05/26 completed Not Available Not Available Not Available propranolol ER 60 mg capsule,24 hr,extended release 03/04 completed Not Available Not Available Not Available metronidazo le 250 mg tablet PLEASE SEE ATTACHED FOR DETAILED DIRECTION S 05/26 completed Not Available Not Available Not Available clindamycin HCl 150 mg capsule TAKE ONE CAPSULE BY MOUTH EVERY 5 HOURS WHILE AWAKE 09/19 completed Not Available Not Available Not Available nystatin 500,000 unit tablet TAKE 4 TABLETS BY MOUTH EVERY DAY FOR INTESTINA L YEAST active Not Available Not Available No t Available penicillin V potassium 500 mg tablet 01/14 completed Not Available Not Available Not Available lamotrigine 25 mg tablet 03/07 completed Not Available Not Available Not Available ketorolac 0.5 % eye drops active Not Available Not Available Not Available tetracyclin e 250 mg capsule TAKE 3 CAPSULE BY MOUTH TWICE DAILY. TAKE 20 MINUTES PRIOR TO EATING OR 1 HOUR AFTER EATING 12/25 completed Not Available Not Available Not Available Kenalog 40 mg/mL suspension for injection Take 1 mL by injection route. active [id number] Not Available Not Available Not Available Celebrex 200 mg capsule Take 1 capsule every day by oral route. 09/20 completed Not Available Not Available Not Available terbinafine HCl 250 mg tablet TAKE 1 TABLET BY MOUTH EVERY DAY 07/16 completed Not Available Not Available Not Available alprazolam 0.25 mg tablet Take 1 tablet 3 times a day by oral route. active Not Available Not Available No t Available prednisolon e acetate 1 % eye drops,suspe nsion active Not Available Not Available Not Available Zoloft 50 mg tablet Take 1 tablet every day by oral route. 01/17 completed Not Available Not Available Not Available rifampin 150 mg capsule TAKE 1 2 CAPSULES BY MOUTH TWICE DAILY. TAKE WITH MINOCYCLI NE. active Not Available Not Available No t Available amitriptyli ne 10 mg tablet 09/20 completed Not Available Not Available Not Available sulfacetami de sodium 10 % eye drops 09/19 completed Not Available Not Available Not Available simvastatin 20 mg tablet Take 1 tablet every day by oral route. 01/08 completed Not Available Not Available Not Available erythromyci n 5 mg/gram (0.5 %) eye ointment APPLY TO AFFECTED EYE(S) EVERY 4 HOURS NEEDED active Not Available Not Available No t Available Synthroid 88 mcg tablet TAKE 1 TABLET DAILY 2022 active Not Available Not Available Not Avai lable polymyxin B sulfate 10,000 unit-trimet hoprim 1 mg/mL eye drops active Not Available Not Available Not Available Synthroid 75 mcg tablet Take 1 tablet every day by oral route in the morning for 90 days. 05/26 completed Not Available Not Available Not Available diclofenac sodium 75 mg tablet,tammie yed release TAKE 1 TABLET BY MOUTH TWICE DAILY active Not Available Not Available No t Available montelukast 10 mg tablet TAKE 1 TABLET BY MOUTH DAILY active Not Available Not Available No t Available azelastine 137 mcg (0.1 %) nasal spray Cranberry Isles 2 sprays twice a day by intranasa l route. 03/09 completed Not Available Not Available Not Available hydroxychlo roquine 200 mg tablet TAKE 1 TABLET BY MOUTH TWICE A DAY 09/19 completed Not Available Not Available Not Available cefuroxime axetil 500 mg tablet 09/19 completed Not Available Not Available Not Available estradiol 0.01% (0.1 mg/gram) vaginal cream Insert by vaginal route. 03/09 completed Not Available Not Available Not Available methylpredn isolone 4 mg tablets in a dose pack FOLLOW PACKAGE DIRECTION S active Not Available Not Available No t Available fluticasone propionate 50 mcg/actuati on nasal spray,suspe nsion 2 sprays each nostril daily. 03/07 completed Not Available Not Available Not Available fludrocorti sone 0.1 mg tablet TAKE 1 TABLET BY MOUTH DAILY. (NEVER STOP THIS MEDICATIO N SUDDENLY. ALWAYS TAPER OFF OF IT. active Not Available Not Available No t Available doxycycline hyclate 100 mg tablet 09/20 completed Not Available Not Available Not Available atovaquone 750 mg/5 mL oral suspension TAKE 5ML BY MOUTH TWICE DAILY. TAKE WITH FOOD OR AT LEAST 10 GRAMS OF FAT. 03/15 completed Not Available Not Available Not Available amoxicillin 875 mg-potassiu m clavulanate 125 mg tablet 07/15 completed Not Available Not Available Not Available Ventolin HFA 90 mcg/actuati on aerosol inhaler Inhale 2 puffs every 4 hours by inhalatio n route. 07/17 completed Not Available Not Available Not Available oxycodone 5 mg tablet TAKE 1 TABLET BY MOUTH EVERY 4 HOURS NEEDED FOR PAIN 06/25 completed Not Available Not Available Not Available testosteron e propionate 2 % transdermal cream compounding kit Apply by transderm al route. 03/09 completed Not Available Not Available Not Available cholestyram ine (with sugar) 4 gram oral powder MIX 1 SCOOP OF POWDER WITH LIQUID AND DRINK ONCE DAILY AT 2PM 08/25 completed Not Available Not Available Not Available escitalopra m 5 mg tablet TAKE 1 TABLET BY MOUTH EVERY DAY. 07/17 completed Not Available Not Available Not Available quinine 324 mg capsule TAKE 1 CAPSULE BY MOUTH ONCE DAILY 09/19 completed Not Available Not Available Not Available Co Q-10 200 mg capsule Take by oral route. 04/25 completed Not Available Not Available Not Available venlafaxine 12/13 completed Not Available Not Available Not Available famotidine 20 mg tabs, takes two tablets daily 02/24 completed Not Available Not Available Not Available simvastatin 01/17 completed Not Available Not Available Not Available Zyrtec 07/16 completed Not Available Not Available Not Available olopatadine 0.2 % eye drops active Not Available Not Available Not Available NAC 600 mg capsule Take by oral route. 04/25 completed Not Available Not Available Not Available VSL#3 112.5 billion cell capsule TAKE 1 CAPSULE BY MOUTH ONCE DAILY 04/25 completed Not Available Not Available Not Available venlafaxine ER 37.5 mg tablet,exte nded release 24 hr TK 1 T PO QAM FOR 1 WEEK THEN 2 TS PO QAM THEREAFTE R active Not Available Not Available No t Available GaviLyte-G 236 gram-22.74 gram-6.74 gram-5.86 gram oral solution DIRECTED 10/18 completed Not Available Not Available Not Available Bepreve 1.5 % eye drops 03/04 completed Not Available Not Available Not Available Tirosint 75 mcg capsule Take 1 capsule every day by oral route in the morning for 30 days. active Not Available Not Available No t Available alpha lipoic acid 600 mg capsule Take by oral route. 04/25 completed Not Available Not Available Not Available Suprep Bowel Prep Kit 17.5 gram-3.13 gram-1.6 gram oral solution active Not Available Not Available Not Available Rosibel Allergy 05/08 completed Not Available Not Available Not Available Mimvey Lo 0.5 mg-0.1 mg tablet Take 1 tablet every day by oral route for 90 days. active Not Available Not Available No t Available Fluarix Quad 2713-4286 (PF) 60 mcg (15 mcg x 4)/0.5 mL IM syringe TO BE ADMINISTE RED BY PHARMACIS T FOR IMMUNIZAT ION 07/16 completed Not Available Not Available Not Available Vitals Date Recorded Body mass index (BMI) Body height Heart rate Body temperature Body weight Systolic blood pressure Diastolic blood pressure Provider Name and Address Organization Details Last Updated DateTime 2 21.6 kg/m2 165.1 cm 66 /min 98 [degF] 93633.0 1 g 118 mm[Hg] 80 mm[Hg] Not Available [facility] 3 01:12:55 Date Recorded Body mass index (BMI) Body height Body weight Provider Name and Address Organization Details Last Updated DateTime 04/25/2022 20.8 kg/m2 165.1 cm 29149.05 g Not Available [facility] 05/23/2022 01:13:02 Date Recorded Body height Body mass index (BMI) Body weight Body temperature Heart rate Systolic blood pressure Diastolic blood pressure Provider Name and Address Organization Details Last Updated DateTime 3 165.1 cm 21.1 kg/m2 74403.2 3 g 98.3 [degF] 78 /min 118 mm[Hg] 74 mm[Hg] Tonya rogers RN [facility] [employer] [facility] 3 10:47:11 Date Recorded Body height Body mass index (BMI) Body weight Body temperature Heart rate Systolic blood pressure Diastolic blood pressure Provider Name and Address Organization Details Last Updated DateTime 3 165.1 cm 21.5 kg/m2 66174.4 2 g 97.7 [degF] 71 /min 112 mm[Hg] 82 mm[Hg] JAMISON Rodriguez DC [employer] [facility] [employer] [facility] 3 10:20:11 Date Recorded Body height Provider Name an d Address Organization Details Last Updated DateTime 01/11/2023 165.1 cm JAMISON Solis [facility] [employer] [facility] 01/11/2023 14:56:38 Social History Question Answer Notes LastModified by Organization Details LastModified Time Tobacco Smoking Status Never Smoker [place]OT [place], [facility] [employer] [facility] 06/25/2022 10:37:44 Do You Have An Advance Directive? No [id number] Information not available 05/23/2022 What Is Your Level Of Alcohol Consumption? Occasional [id number] Information not available 05/23/2022 Do You Wear A Helmet When Biking? Yes [email or web address] Information not available 06/25/2022 What Is Your Level Of Caffeine Consumption? Occasional [id number] Information not available 05/23/2022 How Much Tobacco Do You Chew? None [id number] Information not available 05/23/2022 In The 14 Days Before Symptom Onset, Have You Had Close Contact With A Laboratory-conf irmed COVID-19 While That Case Was Ill? Yes Covid December 10 [email or web address] Information not available 06/25/2022 In The 14 Days Before Symptom Onset, Have You Had Close Contact With A Person Who Is Under Investigation For COVID-19 While That Person Was Ill? Yes [email or web address] Information not available 06/25/2022 Are You Currently Employed? Yes [email or web address] Information not available 06/25/2022 What Type Of Diet Are You Following? REGULAR [id number] Information not available 05/23/2022 Which Illicit Or Recreational Drugs Have You Used? None [email or web address] Information not available 06/25/2022 Do You Or Have You Ever Used E-cigarettes Or Vape? Never Used Electronic Cigarettes [email or web address] Information not available 06/25/2022 What Is The Highest Grade Or Level Of School You Have Completed Or The Highest Degree You Have Received? 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 No [email or web address] Information not available 06/25/2022 What Is The Fluoride Status Of Your Home? Unknown [email or web address] Information not available 06/25/2022 Are There Any Guns Present In Your Home? Yes [email or web address] Information not available 06/25/2022 Do You Use Insect Repellent Routinely? Yes [email or web address] Information not available 06/25/2022 Where Do You Live? SingleLevelHouse [email or web address] Information not available 06/25/2022 Do You Have A Medical Power Of Clinical Writer? No [email or web address] Information not available 06/25/2022 What Was The Date Of Your Most Recent Tobacco Screening? 12/24/2022 [email or web address] Information not available 12/24/2022 Do You Have Any Pets? Yes [email or web address] Information not available 06/25/2022 What Is Your Relationship Status? MIGRATION.[id number] Information not available 05/23/2022 Do You Use Your Seat Belt Or Car Seat Routinely? Yes [email or web address] Information not available 06/25/2022 Do You Have Smoke And Carbon Monoxide Detectors In Your Home? Yes [email or web address] Information not available 06/25/2022 Are You Passively Exposed To Smoke? No [email or web address] Information not available 06/25/2022 Do You Or Have You Ever Used Smokeless Tobacco? Never Used Smokeless Tobacco MIGRATION.[id number] Information not available 05/23/2022 Are There Any Smokers In Your House? No [email or web address] Information not available 06/25/2022 How Much Tobacco Do You Smoke? No [id number] Information not available 05/23/2022 What Types Of Sporting Activities Do You Participate In? None [email or web address] Information not available 06/25/2022 Do You Feel Stressed (tense, Restless, Nervous, Or Anxious, Or Unable To Sleep At Night)? [id number] [email or web address] Information not available 06/25/2022 Do You Use Any Illicit Or Recreational Drugs? No [email or web address] Information not available 06/25/2022 Do You Use Sunscreen Routinely? Yes [email or web address] Information not available 06/25/2022 Has Tobacco Cessation Counseling Been Provided? No Not Needed--nev er Smoked Information not available 06/25/2022 Have You Recently Traveled Abroad? No [email or web address] Information not available 06/25/2022 Do You Have Any Dietary Restrictions? No [email or web address] Information not available 06/25/2022 Do You Or Have You Ever Used Any Other Forms Of Tobacco Or Nicotine? No [email or web address] Information not available 06/25/2022 Sex: Female Functional Status Question Answer Note LastModified by Organizat ion Details LastModified Time What is your exercise level? Occasional [id number] Information not available 05/23/2022 Mental Status None recorded. Family History Relationship Description Onset Age of this Age Resolved Age Notes LastModified by Organization Details LastModified Time Paternal Aunt Carcinoma in situ of breast [email or web address] Not available 05/2022 10:37:43 Father Hypertensive disorder [id number] Not available 05/23/2022 01:00:01 Father Hypercholest erolemia [id number] Not available 05/23/2022 01:00:01 Father Disorder of gastrointest inal tract [email or web address] Not available 05/2022 10:37:43 Father Partial resection of colon [email or web address] Not available 05/2022 10:37:43 Father History of polyp of colon Not available 05/2022 10:37:43 Mother Osteoporosis [email or web address] Not av ailable 06/25/2022 10:37:43 Mother Hypercholest erolemia [id number] Not available 05/23/2022 01:00:01 Medical History Condition Response NERVE DISEASE N BLINDNESS N RHEUMATIC FEVER N KIDNEY STONES N BLADDER PROBLEMS N MRSA N OTHER # 1 Y POLIO N LUNG DISEASE/DISORDER N COPD N RADIATION / CHEMOTHERAPY N Other # 2 N BLOOD DISEASES N SURGERY N EAR OR HEARING PROBLEMS N MUMPS N BOWEL PROBLEMS N DEPRESSION (INCLUDING POST ) Y STROKE/TIA N ULCERS N BENIGN PROSTATIC HYPERPLASIA N MEASLES N MYOCARDIAL INFARCTION N OBESITY N GERD/NAUSEA N ANEURYSM N URINARY/BLADDER/KIDNEY PROBLEMS N CORONARY ARTERY DISEASE (CAD) N ADDICTION CONCERNS N ENDOMETRIOSIS N Impotence N USE OF BLOOD THINNERS N SKIN PROBLEMS N GASTROINTESTINAL DISORDER N PERIPHERAL VASCULAR DISEASE N MUSCLE,JOINT OR BONE PROBLEMS N GASTROINTESTINAL BLEEDING N BLOOD CLOTS N ASTHMA N CATARACTS N USE OF NSAIDS Y ERECTILE DYSFUNCTION N VARICOSITIES N GI PROBLEMS N Low Testosterone N INFERTILITY N AIDS/HIV N CHEMOTHERAPY / RADIATION N LIVER DISEASE N MALE HYPOGONADISM N HYPERTENSION N Deficiency N ANXIETY DISORDER Y Metal allergy Y BLOOD TRANSFUSION N ANEMIA/BLOOD DISORDER N CHRONIC EAR INFECTIONS N BRONCHITIS N TUBERCULOSIS N GLAUCOMA N FOOT PROBLEM N DIVERTICULITIS N SLEEP APNEA N CHICKENPOX N INFECTIOUS DISEASE N PROSTATE N HEART ARRHYTHMIA N INSOMNIA N HIGH CHOLESTEROL / HYPERLIPIDEMIA Y EYE PROBLEMS N HYPERTHYROIDISM N NEUROLOGICAL PROBLEMS N EDEMA N CHRONIC PAIN SYNDROME N HYPOTHYROIDISM Y CONSTIPATION N CAROTID BLOCKAGE N BACK / NECK PROBLEMS N HAVE YOU BEEN HOSPITALIZED OR SEEN IN [facility] IN THE PAST YEAR ? N ATHEROSCLEROSIS N BREAST PROBLEMS N DIALYSIS N ECZEMA N OSTEOPOROSIS N ARTHRITIS N APPENDICITIS N DIABETES, TYPE N BAD TEETH N ENT N HEARTBURN / REFLUX N AUTISM SPECTRUM DISORDER (ASD) N HEPATITIS / LIVER DISEASE N GOUT N SLEEP DISORDER N ALZHEIMER'S DISEASE N Brain Problems N HERPES N DEMENTIA N HEADACHES/MIGRAINES N SEIZURES/EPILEPSY N VASCULAR DISEASE N PACEMAKER N Blood Disorder N DIZZINESS N HEART DISEASE/HEART PROBLEMS N KIDNEY DISEASE N MULTIPLE SCLEROSIS N CARDIAC ARRHYTHMIA N CANCER: SPECIFY N ATRIAL FIBRILLATION N Gall Stones N PULMONARY EMBOLISM N AUTOIMMUNE DISEASE N Gynecological History Statement/Question Response Abnormal Pap Y Date of Last Mammogram 03/09/2019 Date of Last Colonoscopy 08/11/2015 Most Recent Bone Density 07/02/2018 Date of LMP Sexually Active? Y Date of Last Pap 03/07/2018 Date of Last Pap Smear 03/15/2021 Most Recent Mammogram 03/22/2021 Current Control Method Partner Vas ectomy Obstetrics History GPAL:G 1 P 1 0 0 1 Type Value Full Term 1 Living 1 Total 1 Immunizations Vaccine Type Date Status Note Provider Nam e and Address Organization Details Recorded Time Influenza, split virus, trivalent, preservative 3 completed Not Available [facility] 04/16/2023 10:41:40 COVID-19, mRNA, LNP-S, PF, 30 mcg/0.3 mL dose 1 completed Not Available [facility] 04/16/2023 10:41:40 COVID-19, mRNA, LNP-S, PF, 30 mcg/0.3 mL dose 1 completed Not Available [facility] 04/16/2023 10:41:40 Influenza, split virus, trivalent, preservative 6 completed Not Available [facility] 04/16/2023 10:41:40 Influenza, split virus, quadrivalent, PF 5 completed Not Available [facility] 04/16/2023 10:41:40 Influenza, split virus, trivalent, preservative 4 completed Not Available [facility] 04/16/2023 10:41:40 Past Encounters Encounter ID Performer Location Encounter Start Date Encounter Closed Date Diagnosis/Indication Diagnosis SNOMED-CT Code Diagnosis ICD10 Code Diagnosis Note [id number] [facility] Internal Med [address] [facility], [address] [place] [address] 06/22/2020 00:00:00 2020 11:25:51 [id number] _KIMI_M IGRATION_ DEFAULT_1 _1 , 08/17/2020 00:00:00 08/25/2020 14:41:22 [id number] [facility] [address] Deborah[address] [address] 12/21/2020 00:00:00 01/08/2021 22:16:03 [id number] [facility] [place] [address] [place], [place] [address] 02/22/2021 00:00:00 02/22/2021 12:01:53 [id number] _ATHENA_M IGRATION_ DEFAULT_1 _1 , 03/15/2021 00:00:00 03/15/2021 12:29:59 [id number] [facility] [place] [address] 06/26/2021 00:00:00 07/16/2021 11:43:28 [id number] [facility] [place] [address] 12/25/2021 00:00:00 12/25/2021 18:39:38 [id number] [facility] [place] [address] [place] [address] 04/25/2022 00:00:00 04/25/2022 11:55:48 [id number] Naseem Rai MD [facility] [place] [address] 06/25/2022 10:33:51 06/25/2022 11:32:19 Hypercholesterolemia [id number] E78.00 [facility] [id number] E03.9 [id number] Naseem Rai MD [facility] [place] [address] 1 12/24/2022 10:10:56 12/24/2022 10:56:30 Hypercholesterolemia [id number] E78.00 [facility] [id number] E03.9 [facility] [id number] R51.9 [id number] LOC Brown [facility] [place] [address] [place] [address] 01/11/2023 14:55:31 01/11/2023 16:07:24 Low back pain [id number] M54.50 Health Concerns Section Related Observation LastModified by Organization Detai ls LastModified Time None Recorded Concern Status LastModified by Organization Details LastModified Time None Recorded Advance Directives Directive N: Payers Encounter Date Sequence Insurance Name Policy Number Policy [place] Covered Member ID [place] Member ID Guarantor Name 06/25/2022 1 [employer] [id number] Odell Frost [id number] Samanta Frost 12/24/2022 1 [employer] [id number] Odell Frost [id number] Samanta Frost 01/11/2023 1 [employer] [id number] Odell Frost [id number] Samanta Frost Notes Date Note Type Note Provider Name and Address Organization Details Recorded Time 06/25/2022 text/html Hyperlipidemia t herbert to follow diet hypothyroid she can to vacillates with heat and cold intolerance and fatigue and hair loss but that seems to be stable now Naseem Rai MD [address], [place], [address], [employer] 06/25/2022 21:54:35 12/24/2022 text/html Hyperlipidemia t herbert to follow diet hypothyroid she can to vacillates with heat and cold intolerance and fatigue and hair loss but that seems to be stable now. Did have her migraine Naseem Rai MD [address], [place], [address], [employer] 12/25/2022 14:31:48 OBGyn Episode No OBEpisode recorded.
[2024-06-29 07:49] LABS: Basophils Percent Auto 0.6 % (0.2-1.2); Eosinophils Absolute Auto 0.1 K/mm3 (0-0.3); Eosinophils Percent Auto 2.6 % (0-4.4); Hematocrit 39.9 % (37.0-47.0); Immature Granulocyte Absolute 0.01 K/mm3 (0.00-0.031); Immature Granulocyte Percent A 0.3 % (0-0.5); Lymphocytes Absolute Auto 1.74 K/mm3 (0.9-3.2); Lymphocytes Percent Auto 49.4 % (18.3-44.2); Mean Corpuscular HGB Conc 32.6 g/dl (32-36); Mean Corpuscular Hemoglobin 28.4 pg (26-34); Mean Corpuscular Volume 87.3 fl (80-100); Mean Platelet Volume 9.6 fl (7.4-10.4); Monocytes Absolute Auto 0.3 K/mm3 (0.1-0.6); Monocytes Percent Auto 7.7 % (2.6-8.5); Neutrophils Absolute Auto 1.4 K/mm3 (1.3-6.7); Neutrophils Percent Auto 39.4 % (45.5-73.1); Platelet Count Result 177 k/mm3 (150-375); Red Blood Count 4.57 M/mm3 (4.2-5.4); White Blood Count 3.5 K/mm3 (4.5-10.0)
[2024-06-29 08:22] LABS: Alanine Aminotransferase 25 U/L (6-35); Albumin Level 4.6 g/dL (3.5-5.1); Alkaline Phosphatase 63 U/L (38-126); Anion Gap 8 mmol/L (4-12); Aspartate Amino Transferase 34 U/L (14-36); Bilirubin,Total 0.5 mg/dL (0.2-1.3); Blood Urea Nitrogen 9 mg/dL (7-17); Calcium 9.5 mg/dL (8.4-10.2); Carbon Dioxide 28 mmol/L (22-30); Chloride 105 mmol/L (98-107); Cholesterol 192 mg/dL (0-200); Estimated Glomerular Filt Rate > 60; Glucose 89 mg/dL (65-110); HDL Direct 68 mg/dL; Potassium 4.3 mmol/L (3.4-5.0); Sodium 141 mmol/L (137-145); Triglycerides 159 mg/dL (<150)
[2024-06-29 08:33] LABS: LDL Cholesterol Direct 74 mg/dL
[2024-06-29 11:27] LABS: Free T3 3.27 pg/mL (2.71-6.16); Free T4 Free Thyroxine 1.44 ng/dL (0.78-2.19)
== END 2024-06-29 07:08 | disposition home or self-care (01) ==
LOC: ANHLAB 07:10
PROVIDERS: PCP Internal Medicine; Visit Provider Internal Medicine
DX: E03.9 Hypothyroidism, unspecified (principal); E78.00 Pure hypercholesterolemia, unspecified; Z79.899 Other long term (current) drug therapy
CPT/HCPCS: 36415; 80053; 80061; 82306; 84439; 84443; 84481; 85025

== ENCOUNTER 2024-12-03 08:46 | Outpatient (CLI) | payer OTHER, SELFPAY ==
--- NOTE | ~2024-12-03 | MM_ITS ---
EXAMINATION: MM screening helena BI w pieter HISTORY: Screening TECHNIQUE: Craniocaudal and mediolateral oblique 3-D tomosynthesis images were obtained and synthetic 2-D images were generated. CAD analysis was submitted and interpreted. COMPARISON: None provided BREAST PARENCHYMAL COMPOSITION: The breasts are heterogeneously dense, which may obscure small masses. FINDINGS: There is no evidence of suspicious mass, calcification, or architectural distortion to suggest malignancy in either breast. IMPRESSION: 1. No mammographic evidence of malignancy. 2. Recommend routine screening mammography in one year. BI-RADS Category 1: Negative Reviewed, dictated and finalized at location B.
== END 2024-12-03 08:47 | disposition home or self-care (01) ==
LOC: ANHFOHIMG 08:48
PROVIDERS: PCP Internal Medicine; Visit Provider Obstetrics & Gynecology
DX: Z12.31 Encounter for screening mammogram for malignant neoplasm of breast (principal)
CPT/HCPCS: 77063; 77067

== ENCOUNTER 2024-12-10 07:42 | Outpatient (CLI) | payer OTHER, SELFPAY ==
[2024-12-10 08:19] LABS: Hematocrit 42.5 % (37.0-47.0); Hemoglobin 14.2 g/dL (12.0-15.0); Immature Granulocyte Percent A 0.3 % (0-0.5); Lymphocytes Absolute Auto 1.60 K/mm3 (0.9-3.2); Mean Corpuscular HGB Conc 33.4 g/dl (32-36); Mean Corpuscular Hemoglobin 28.7 pg (26-34); Mean Corpuscular Volume 85.9 fl (80-100); Nucleated Red Blood Cells Absolute Auto 0.000 K/mm3 (0.0-0.012); Nucleated Red Blood Cells Perc 0.0 % (0.0-0.2); Platelet Count Result 198 k/mm3 (150-375); Red Blood Count 4.95 M/mm3 (4.2-5.4); White Blood Count 3.8 K/mm3 (4.5-10.0)
[2024-12-10 08:25] LABS: Alanine Aminotransferase 18 U/L (6-35); Albumin Level 4.6 g/dL (3.5-5.1); Alkaline Phosphatase 69 U/L (38-126); Anion Gap 6 mmol/L (4-12); Aspartate Amino Transferase 31 U/L (14-36); Bilirubin,Total 0.5 mg/dL (0.2-1.3); Blood Urea Nitrogen 9 mg/dL (7-17); Calcium 9.3 mg/dL (8.4-10.2); Carbon Dioxide 29 mmol/L (22-30); Chloride 103 mmol/L (98-107); Cholesterol 321 mg/dL (0-200); Estimated Glomerular Filt Rate > 60; Glucose 89 mg/dL (65-110); HDL Direct 75 mg/dL; Potassium 4.4 mmol/L (3.4-5.0); Sodium 138 mmol/L (137-145); Total Protein 7.8 g/dL (6.3-8.2); Triglycerides 176 mg/dL (<150)
== END 2024-12-10 07:43 | disposition home or self-care (01) ==
LOC: ANHLAB 07:45
PROVIDERS: PCP Internal Medicine; Visit Provider Internal Medicine
DX: E78.00 Pure hypercholesterolemia, unspecified (principal); Z79.899 Other long term (current) drug therapy
CPT/HCPCS: 36415; 80053; 80061; 82306; 85025